=== PATIENT | female | born 1950 | race Caucasian/White ===

== ENCOUNTER → 2016-12-03 | Outpatient (CLI) | payer MEDICARE ==
--- NOTE | 2016-12-04 08:07 | MM ---
Reason for exam: follow-up at short interval from prior study. Last mammogram was performed 10 months ago. History: Patient is postmenopausal. Benign MG stereo VAD BX LT of the left breast, February 07, 2016. Took estrogen for 3 months. Took progesterone for 3 months. Physical Findings: Nurse did not find any significant physical abnormalities on exam. MG 3D Diag Mammo W/Cad LT CC and MLO view(s) were taken of the left breast. Prior study comparison: January 24, 2016, left breast MG 3d work up w/cad LT. January 03, 2016, bilateral MG screening mammo w CAD. June 30, 2014, bilateral MG screening mammo w CAD. There are scattered fibroglandular densities. Previous mammotome biopsy in the left breast. There is chronic nodularity in the left breast. No significant new findings when compared with previous films. These results were verbally communicated with the patient and result sheet given to the patient on 12/03/16. ASSESSMENT: Benign, BI-RAD 2 RECOMMENDATION: Return to routine screening mammogram schedule for both breasts. Back on schedule for January 2017 (as the patient is late for her 6 month follow up) MAGDALENA
== END | disposition home or self-care (01) ==
LOC: RADMAMWWP 14:14
PROVIDERS: ATTEND Family Medicine
DX: N63 Unspecified lump in breast (principal)
CPT/HCPCS: G0206; G0279

== ENCOUNTER → 2018-03-07 | Outpatient (CLI) | payer MEDICARE ==
[2018-03-07 17:31] LABS: Anisocytosis Slight; HCT 38.1 % (34.0-46.0); HGB 12.2 gm/dL (11.4-16.0); Hypochromasia Moderate; MCH 26.1 pg (25.0-35.0); MCHC 31.9 g/dL (31.0-37.0); MCV 81.9 fL (80.0-100.0); Mean Platelet Volume 7.6; Microcytosis Slight; Platelet Count 489 k/uL (150-450); Poikilocytosis Slight; RBC 4.66 m/uL (3.80-5.40); RDW 18.3 % (11.5-15.5); WBC 10.1 k/uL (3.8-10.6)
[2018-03-07 17:42] LABS: Potassium 4.2 mmol/L (3.5-5.1)
== END | disposition home or self-care (01) ==
LOC: LABPAT 17:06
PROVIDERS: ATTEND Internal Medicine Interventional Cardiology
DX: Z01.812 Encounter for preprocedural laboratory examination (principal); I48.0 Paroxysmal atrial fibrillation
CPT/HCPCS: 80051; 82565; 84520; 85027

== ENCOUNTER 2018-03-11 08:34 | Day surgery (SDC) | payer MEDICARE ==
[~2018-03-11 08:34] MED LIST: SODIUM CHLORIDE 0.9% 1,000 ML IV SCH
[2018-03-11 09:10] VITALS: TEMP 98.1
[2018-03-11 09:25] LABS: INR 1.7 (<1.2); Prothrombin Time 15.2 sec (9.0-12.0)
[2018-03-11] MEDS ORDERED: PROPOFOL 10 MG/ML 20 ML VIAL IV ONE (10:16)
[2018-03-11] MEDS ORDERED: LIDOCAINE 1% INJ 10MG/ML (20 ML MDV) ONE (10:16)
[2018-03-11] MEDS ORDERED: WARFARIN 3 MG TAB PO STA (10:31)
--- NOTE | 2018-03-11 10:43 | CE ---
CARDIAC ELECTROPHYSIOLOGY REPORT DATE OF SERVICE: 03/11/2018 PROCEDURE: Electrical cardioversion. INDICATION: Persistent atrial fibrillation. CLINICAL INFORMATION: Mrs. Dawn Lopez is a 67-year-old lady with a history of paroxysmal A. fib, peripheral arterial disease, previous arterial embolism who has been adequately anticoagulated. She has been having atrial fib for the past 2 weeks, was initially reluctant, but finally agreed to have electrical cardioversion and was brought in for the procedure today. Risks, benefits, options and rationale were explained to the patient. PROCEDURE: Under the influence of ultra short-acting intravenous anesthetic agent with the attendance of the anesthesiologist, a single 200 joule synchronized shock was delivered with anterior and posterior patches. Patient converted to sinus rhythm, remained hemodynamically stable and neurologically intact. This was a successful electrical cardioversion. I am recommending that she will take 3 mg of Coumadin today, 1.5 mg every day except Saturday and , which will again be 3 mg and PT, INR will be checked next Saturday along with an office visit. I am asking her to cut down the Lopressor to 50 mg t.i.d. and I will see her in one week at the office. This was a successful electrical cardioversion. MMODL / IJN: [id number] /
[2018-03-11 11:03] VITALS: RESP 18
[2018-03-11 13:10] VITALS: BP 106/64
[2018-03-11 14:32] VITALS: PULSE 77
== END 2018-03-11 15:03 | disposition home or self-care (01) ==
LOC: CATHCVL 08:34
PROVIDERS: ATTEND Internal Medicine Interventional Cardiology
DX: I48.1 Persistent atrial fibrillation (principal); I73.9 Peripheral vascular disease, unspecified; I10 Essential (primary) hypertension; E78.5 Hyperlipidemia, unspecified; J44.9 Chronic obstructive pulmonary disease, unspecified; I25.10 Atherosclerotic heart disease of native coronary artery without angina pectoris; K21.9 Gastro-esophageal reflux disease without esophagitis; E66.9 Obesity, unspecified; Z68.38 Body mass index [BMI] 38.0-38.9, adult; Z98.62 Peripheral vascular angioplasty status; Z86.718 Personal history of other venous thrombosis and embolism; Z79.01 Long term (current) use of anticoagulants; Z79.02 Long term (current) use of antithrombotics/antiplatelets; Z79.899 Other long term (current) drug therapy; Z91.041 Radiographic dye allergy status; Z98.51 Tubal ligation status; Z87.891 Personal history of nicotine dependence
CPT/HCPCS: 92960; 85610; J2001; J2704

== ENCOUNTER → 2018-03-25 | Outpatient (CLI) | payer MEDICARE ==
[2018-03-25 16:23] LABS: Phosphorus 3.5 mg/dL (2.5-4.5)
[2018-03-25 16:39] LABS: T4, Free (Free Thyroxine) 1.39 ng/dL (0.78-2.19)
== END | disposition home or self-care (01) ==
LOC: LAB 15:31
PROVIDERS: ATTEND Internal Medicine Interventional Cardiology
DX: E03.2 Hypothyroidism due to medicaments and other exogenous substances (principal)
CPT/HCPCS: 36415; 84075; 84100; 84439; 84443; 84450; 84460

== ENCOUNTER → 2018-05-23 | Outpatient (CLI) | payer MEDICARE ==
[2018-05-23 15:32] LABS: Anisocytosis Slight; HGB 12.3 gm/dL (11.4-16.0); Hypochromasia Marked; MCH 25.7 pg (25.0-35.0); MCHC 30.7 g/dL (31.0-37.0); MCV 83.7 fL (80.0-100.0); Mean Platelet Volume 8.2; Platelet Count 327 k/uL (150-450); RBC 4.78 m/uL (3.80-5.40); RDW 19.4 % (11.5-15.5)
[2018-05-23 15:54] LABS: Potassium 3.9 mmol/L (3.5-5.1)
== END | disposition home or self-care (01) ==
LOC: LABWHC1 14:37
PROVIDERS: ATTEND Internal Medicine Interventional Cardiology
DX: Z01.812 Encounter for preprocedural laboratory examination (principal); I48.1 Persistent atrial fibrillation; I10 Essential (primary) hypertension
CPT/HCPCS: 36415; 80051; 82565; 84520; 85027

== ENCOUNTER → 2018-06-27 | Outpatient (CLI) | payer MEDICARE ==
[2018-06-27 17:48] LABS: Anisocytosis Slight; Basophils % (A) 1 %; Eosinophils # (A) 0.1 k/uL (0-0.7); Eosinophils % (A) 2 %; HCT 39.3 % (34.0-46.0); Hypochromasia Marked; Lymphocytes # (A) 1.1 k/uL (1.0-4.8); Lymphocytes % (A) 17 %; MCH 26.5 pg (25.0-35.0); MCHC 30.6 g/dL (31.0-37.0); MCV 86.6 fL (80.0-100.0); Mean Platelet Volume 8.4; Monocytes # (A) 0.4 k/uL (0-1.0); Monocytes % (A) 6 %; Neutrophils # (A) 4.7 k/uL (1.3-7.7); Neutrophils % (A) 72 %; Platelet Count 338 k/uL (150-450); RBC 4.53 m/uL (3.80-5.40); RDW 19.9 % (11.5-15.5); WBC 6.5 k/uL (3.8-10.6)
[2018-06-27 17:55] LABS: Potassium 3.7 mmol/L (3.5-5.1)
== END ==
LOC: LABPAT 17:26
PROVIDERS: ATTEND Internal Medicine Interventional Cardiology
DX: Z01.812 Encounter for preprocedural laboratory examination (principal)
CPT/HCPCS: 36415; 80051; 82565; 84520; 85025

== ENCOUNTER 2018-07-09 06:38 | Day surgery (SDC) | payer MEDICARE ==
[2018-07-08 11:56] VITALS: BMI 39.4
[~2018-07-09 06:38] MED LIST changes: +ALPRAZolam 0.25 MG TAB PO PRN; +ALPRAZolam 0.5 MG TAB PO PRN; +ASPIRIN 325 MG TAB PO STA; +ATORVASTATIN 80 MG TAB PO STA; +NITROGLYCERIN SL TABS 0.4 MG TAB SUBLINGUAL PRN; -SODIUM CHLORIDE 0.9% 1,000 ML IV SCH; +SODIUM CHLORIDE 0.9% 1,000 ML in EMPTY BAG 1 BAG IV ONE
[2018-07-09 07:22] VITALS: TEMP 98.3
[2018-07-09 07:32] LABS: INR 1.5 (<1.2); Prothrombin Time 14.2 sec (9.0-12.0)
[2018-07-09] MEDS ORDERED: diphenhydrAMINE 50 MG/ML 1 ML VIAL IVP ONE (07:49)
[2018-07-09] MEDS ORDERED: MIDAZOLAM 2 MG/2 ML VIAL IV ONE ×2 (07:49)
[2018-07-09] MEDS ORDERED: LIDOCAINE 1% INJ 10MG/ML (20 ML MDV) SQ ONE (07:51)
[2018-07-09] MEDS: VERAPAMIL SYRINGE (5 MG/10 ML) INTRAARTER ONE ×2 (07:52→08:18)
[2018-07-09] MEDS ORDERED: HEPARIN SODIUM 1,000 UN/ML (10ML VL) IV ONE (08:00)
[2018-07-09] MEDS ORDERED: MORPHINE SULFATE 4 MG/ML SYRINGE IV ONE ×2 (08:13)
[2018-07-09] MEDS ORDERED: IOPAMIDOL-370 100ML BTL INJ ONE (08:21)
[2018-07-09] MEDS ORDERED: SODIUM CHLORIDE 0.9% 1,000 ML IV SCH (08:45)
[2018-07-09 09:43] LABS: T4, Free (Free Thyroxine) 1.72 ng/dL (0.78-2.19)
--- NOTE | 2018-07-09 09:55 | P.CRDCN ---
History of Present Illness Consult reason: atrial fibrillation (With RVR, refractory to amiodarone) History of present illness: This is Dr. Rocha dictating a consult on this patient The patient was interviewed and examined by me IMPRESSION / ASSESSMENT: Drug refractory persistent atrial fibrillation with RVR Coronary artery disease with an occluded RCA with leftward collaterals, moderate coronary artery disease in the other vessels, no Darrius stenting performed today History of thromboembolism to the lower extremities in the past Failed electrical cardioversion in the past PLAN: Avoid class on antiarrhythmic drug therapy at this time. Proceed with pulmonary vein isolation cryoablation Restart amiodarone 400 mg by mouth daily. Next month 200 mg by mouth daily and thereafter 100 mg by mouth daily Restart warfarin I discussed the role of pulmonary vein isolation in atrial fibrillation success rates risks benefits and complications including cardiac puncture stroke esophageal injury need for esophageal deflection phrenic nerve injury risk and for further monitoring She also understands that I would like INRs to be therapeutic for 4-6 weeks prior to the procedure Coumadin must not be held prior to the procedure HPI 67-year-old female patient of Dr. CHYNA Camacho and Dr. Staci Tiwari who has atrial fibrillation with RVR, symptomatic with shortness of breath on exertion tiredness and fatigue. She has failed electrical cardioversion on amiodarone in the past. I suggested the use of flecainide since her LV function was normal but with the caveat that a coronary arteries need to be evaluated prior to initiation of class I antiarrhythmic drug therapy. Today she underwent coronary angiography by Dr. CHYNA Camacho and showed a chronically occluded RCA with collaterals. She also has moderate coronary artery disease and other coronary arteries. Final coronary angiography report pending ROS: Shortness of breath and exertion tiredness and fatigue No fever chills or rigors, no cough, phlegm or expectoration, no nausea, vomiting or diarrhea, no hematuria, dysuria, no musculoskeletal complaints, no strokes or seizures, no skin lesions. EXAMINATION Mima tachycardic even at rest to 110 beats a minute irregular Breath sounds are clear no rhonchi no crackles No murmurs or gallops no rub but tachycardic on auscultation Abdomen soft nontender Extremities warm no edema No JVD Increased BMI of 39.5 REVIEW OF LABS, ECG INR 1.5, Coumadin on hold for coronary angiography ALT 21 AST 16 alkaline phosphatase 122 free T4 Past Medical History Past Medical History: Atrial Fibrillation, Coronary Artery Disease (CAD), COPD, Deep Vein Thrombosis (DVT), Fibromyalgia, GERD/Reflux, Hyperlipidemia, Hypertension, Vascular Disorder Additional Past Medical History / Comment(s): hx clot rt femoral artery, Peripheral vascular disease with history of claudication, hx dry mouth, PAD, had a bloody nose that lasted for "several hours" yesterday-didn't call or be seen for History of Any Multi-Drug Resistant Organisms: None Reported Past Surgical History: Orthopedic Surgery, Tubal Ligation Additional Past Surgical History / Comment(s): clot removed right femoral artery , ANGIOPLASTY TO LEFT LEG, Left shoulder repair with pin, cardioversion Past Anesthesia/Blood Transfusion Reactions: No Reported Reaction Smoking Status: Former smoker - Past Family History Mother Family Medical History: Cancer Father Family Medical History: Cancer Medications and Allergies Home Medications Medication Instructions Recorded Confirmed Type Albuterol Inhaler [Ventolin Hfa 2 puff INHALATION RT-Q6H PRN 10/01/16 07/09/18 History Inhaler] Baclofen [Lioresal] 10 mg PO QID 10/01/16 07/09/18 History Clopidogrel [Plavix] 75 mg PO W/SUPPER 10/01/16 07/09/18 History Cyanocobalamin (Vitamin B-12) 5,000 mcg PO DAILY 10/01/16 07/09/18 History [Vitamin B12] DULoxetine HCL [Cymbalta] 60 mg PO HS 10/01/16 07/09/18 History Omeprazole 20 mg PO DAILY 10/01/16 07/09/18 History oxyCODONE-APAP 5-325MG [Percocet 1 tab PO Q6HR PRN 10/01/16 07/09/18 History 5-325 mg] Cilostazol [Pletal] 100 mg PO BID 03/11/18 07/09/18 History Furosemide [Lasix] 40 mg PO BID 03/11/18 07/09/18 History Metoprolol Tartrate [Lopressor] 75 mg PO TID 03/11/18 07/09/18 History Pilocarpine [Salagen] 1 tab PO TID 03/11/18 07/09/18 History Tiotropium 18 Mcg/Puff [Spiriva] 1 inhalation PO DAILY 03/11/18 07/09/18 History Cholecalciferol [Vitamin D3] 5,000 unit PO MO 05/14/18 07/09/18 History Warfarin [Coumadin] 3 mg PO DAILY 05/14/18 07/08/18 History Magnesium Oxide [Mag-Ox] 500 mg PO BID 05/21/18 07/09/18 History rOPINIRole HCL [Requip] 5 mg PO HS 07/09/18 07/09/18 History Allergies Allergy/AdvReac Type Severity Reaction Status Date / Time Iodinated Contrast- Oral and Allergy Anaphylaxis Verified 07/08/18 11:31 IV Dye [Iodinated Contrast Media - Oral and] Physical Exam Vitals: Vital Signs Temp Pulse Resp BP BP Pulse Ox 07/09/18 09:32 112 H 18 108/53 94 L 07/09/18 08:55 112 H 18 116/54 92 L 07/09/18 08:40 114 H 18 124/63 94 L 07/09/18 07:10 98.3 F 113 H 20 111/64 92 L Intake and Output 07/08/18 07/09/18 07/09/18 22:59 06:59 14:59 Intake Total 150 Balance 150 Intake: IV 150 Results Cardiac Enzymes 07/09/18 Range/Units 08:55 AST 21 (14-36) U/L Coagulation 07/09/18 Range/Units 07:15 PT 14.2 H (9.0-12.0) sec Comprehensive Metabolic Panel 07/09/18 Range/Units 08:55 AST 21 (14-36) U/L ALT 16 (9-52) U/L Alkaline Phosphatase 122 (38-126) U/L Current Medications Generic Name Dose Route Start Last Admin Trade Name Freq PRN Reason Stop Dose Admin Alprazolam 0.25 mg 07/09/18 06:27 Xanax PO Q6HR PRN Mild Anxiety Alprazolam 0.5 mg 07/09/18 06:27 Xanax PO Q6HR PRN Moderate Anxiety Sodium Chloride 1,000 ml/ IV 1,000 mls @ 104.32 mls/hr 07/09/18 06:27 07:10 Solution IV 07/09/18 16:02 150 mls .Q9H36M ONE Administration 1 ML/KG/HR Sodium Chloride 1,000 mls @ 100 mls/hr 07/09/18 08:45 Saline 0.9% IV 07/09/18 13:44 .Q10H CONNER Nitroglycerin 0.4 mg 07/09/18 06:27 Nitrostat SUBLINGUAL Q5M PRN Chest Pain Intake and Output 07/08/18 07/09/18 07/09/18 22:59 06:59 14:59 Intake Total 150 Balance 150 Intake: IV 150
[2018-07-09 10:44] VITALS: BP 133/64; PULSE 108; RESP 16
--- NOTE | 2018-07-09 11:19 | ECHOF ---
Referral Reason:LV function MEASUREMENTS -------- HEIGHT: 162.6 cm WEIGHT: 104.3 kg BP: 116/54 RVIDd: 3.3 cm (< 3.3) IVSd: 1.0 cm (0.6 - 1.1) LVIDd: 4.1 cm (3.9 - 5.3) LVPWd: 1.0 cm (0.6 - 1.1) IVSs: 1.2 cm LVIDs: 3.5 cm LVPWs: 1.4 cm LAESV Index (A-L): 34.63 ml/m Ao Diam: 3.0 cm (2.0 - 3.7) AV Cusp: 1.7 cm (1.5 - 2.6) LA Diam: 4.3 cm (2.7 - 3.8) EPSS: 0.7 cm MV E Paul: 1.16 m/s MV DecT: 160 ms MV A Paul: 0.00 m/s MV E/A Ratio: 488.25 RAP: 10.00 mmHg RVSP: 55.69 mmHg MV EF SLOPE: 165.70 mm/s (70 - 150) MV EXCURSION: 2.17 cm (> 18.000) FINDINGS -------- Atrial fibrillation. This was a technically difficult study with suboptimal views. The left ventricular size is normal. Left ventricular wall thickness is normal. There is moderate global hypokinesis of LV . Overall left ventricular systolic function is mild-moderately impaired with, an EF between 40 - 45 %. The right ventricle is mildly enlarged. LA is moderately dilated 34-39 ml/m2 RA appears enlarged. 3 ml of Lumason was utilized for enhancement of images. There is mild aortic valve sclerosis. There is no evidence of aortic regurgitation. There is no e vidence of aortic stenosis. The mitral valve leaflets are mildly thickened. There is trace to mild mitral regurgitation. Moderate tricuspid regurgitation present. There is mild to moderate pulmonary hypertension. The r ight ventricular systolic pressure, as measured by Doppler, is 55.69mmHg. Trace/mild (physiologic) pulmonic regurgitation. The aortic root size is normal. The IVC is dilated with normal collapse. There is no pericardial effusion. CONCLUSIONS -------- 1. Atrial fibrillation. 2. This was a technically difficult study with suboptimal views. 3. The left ventricular size is normal. 4. Left ventricular wall thickness is normal. 5. There is moderate global hypokinesis of LV . 6. Overall left ventricular systolic function is mild-moderately impaired with, an EF between 40 - 45 %. 7. The right ventricle is mildly enlarged. 8. LA is moderately dilated 34-39 ml/m2 9. RA appears enlarged. 10. 3 ml of Lumason was utilized for enhancement of images. 11. There is mild aortic valve sclerosis. 12. The mitral valve leaflets are mildly thickened. 13. There is trace to mild mitral regurgitation. 14. Moderate tricuspid regurgitation present. 15. There is mild to moderate pulmonary hypertension. 16. The right ventricular systolic pressure, as measured by Doppler, is 55.69mmHg. 17. Trace/mild (physiologic) pulmonic regurgitation. 18. The aortic root size is normal. 19. The IVC is dilated with normal collapse. 20. There is no pericardial effusion. [employer]: Huseyin Real RDCS
--- NOTE | 2018-07-09 12:06 | CC ---
CARDIAC CATHETERIZATION REPORT DATE OF SERVICE: 07/09/2018. PROCEDURE: Left heart catheterization and coronary angiography. PERFORMED BY: Dr. Isaac Camacho. Moderate conscious sedation time was 27 minutes. Patient was administered Versed, Benadryl morphine and her oxygen saturation, hemodynamics and EKG were monitored closely. CLINICAL INFORMATION: Mrs. Dawn Lopez is a 68-year-old lady with a history of persistent atrial fibrillation with a rapid rate, hypertension, hyperlipidemia, and peripheral arterial disease status post vascular surgery and also has had a history of arterial embolism. She has been adequately anticoagulated in this regard. Rate control was an issue. She was seen by Dr. Rocha who recommended switching from amiodarone to flecainide, but I did not do this in view of the concern she may have coronary artery disease. She was advised coronary angiography prior to any electrophysiological intervention. Risks, benefits, options and rationale were explained. Patient was brought in for the procedure electively. PROCEDURE NOTE: Under local anesthesia and strict aseptic precautions, a 6-Amharic introducer was placed in the right radial artery. Using Ultimate 1 catheter I performed selective coronary angiography of the left system. I used a pigtail catheter to check LV pressures but LV gram was not performed. I used a standard right Mae catheter to perform selective coronary angiography of the right coronary artery. The sheath was taken out and TR band applied and oxygen saturation in the fingers of the right hand was very good at 91%. CARDIAC CATHETERIZATION FINDINGS: The left ventricular end-diastolic pressure was about 22 mmHg and there was no gradient across the aortic valve. CORONARY ANGIOGRAPHY FINDINGS: RIGHT CORONARY ARTERY: This vessel is totally occluded, seen as a stump without any antegrade flow. There is a fairly decent network of collaterals from the left system filling the distal branches of the RCA and these are coming mostly from the LAD and also to some extent from the circumflex and the PDA branch is fully opacified and the RCA appears to be a dominant vessel that is totally occluded. LEFT MAIN CORONARY ARTERY: Short patent vessel free of significant disease that immediately bifurcates into LAD and circumflex. LEFT ANTERIOR DESCENDING CORONARY ARTERY: Good caliber vessel extends along the anterior wall. In the midportion, there is about a 40% to 50% narrowing eccentric in nature at an angle after which the caliber improves. Vessel runs all the way to the apex giving off septal and diagonal branches. The septal and diagonal branches have minor irregularities. No significant disease. The LAD therefore has a 40% to 50% smooth mid lesion. LEFT POSTERIOR CIRCUMFLEX CORONARY ARTERY: Technically nondominant vessel gives off a large obtuse marginal and this then distally continues as a posterolateral branch. There are minor irregularities. No significant disease is noted. COLLATERAL CIRCULATION: There is a rich network of collaterals opacifying the distal RCA, most of the PDA branch and the collaterals are coming from both LAD and circumflex. LEFT VENTRICULOGRAM: This was not performed. FINAL IMPRESSION: This patient has total occlusion of RCA, filling pressures, 40% to 50% mid LAD lesion and nondominant circumflex is free of significant disease. RCA is dominant vessel. Left ventriculogram was not performed. RECOMMENDATIONS: I am recommending continued medical therapy with risk factor modification. No intervention is necessary at this time from a coronary artery disease standpoint. However, we will start her on amiodarone 200 mg b.i.d. and she will also be seen by Dr. Rocha today and an echocardiogram will be also performed. I am initiating her on amiodarone 200 mg b.i.d. She will follow with her PCP, Dr. Patricio Tiwari. MMODL / IJN: [id number] /
== END 2018-07-09 13:25 | disposition home or self-care (01) ==
LOC: CATHCVL 06:38
PROVIDERS: ATTEND Internal Medicine Interventional Cardiology
DX: I08.3 Combined rheumatic disorders of mitral, aortic and tricuspid valves (principal); I25.10 Atherosclerotic heart disease of native coronary artery without angina pectoris; I11.9 Hypertensive heart disease without heart failure; I25.82 Chronic total occlusion of coronary artery; I10 Essential (primary) hypertension; E78.5 Hyperlipidemia, unspecified; Z87.891 Personal history of nicotine dependence; I27.20 Pulmonary hypertension, unspecified; I48.1 Persistent atrial fibrillation; I73.9 Peripheral vascular disease, unspecified; Z79.01 Long term (current) use of anticoagulants; Z79.02 Long term (current) use of antithrombotics/antiplatelets; Z79.899 Other long term (current) drug therapy
CPT/HCPCS: 93458; 84439; 84075; 84443; 84450; 84460; 85610; C8929; C1769 ×2; C1894; J2250; J2270; J1200; J2001; J1644; Q9950; Q9967; 93306

== ENCOUNTER 2018-08-04 18:51 | Inpatient (IN) | payer MEDICARE ==
--- NOTE | 2018-08-04 19:15 | ED ---
General Adult HPI <Anson eVnces - Last Filed: 08/04/18 23:40> - General Source: patient, RN notes reviewed Mode of arrival: wheelchair Limitations: no limitations <Luciano Ureña - Last Filed: 08/05/18 01:57> - General Chief complaint: Extremity Problem,Nontraumatic Stated complaint: afib Time Seen by Provider: 08/04/18 19:13 - History of Present Illness Initial comments: 68-year-old female with history of atrial fibrillation, CAD, DVT, hyperlipidemia , COPD presents to the emergency department for a chief complaint of right lower extremity pain 4 days. Patient states this pain has been intermittent for over a year now and has been diagnosed with peripheral artery disease. Patient states she has also had a DVT in the right lower extremity about one year ago and believes there may be some chronic residual DVT. Patient states she was offered surgery by Dr. Acevedo for peripheral artery disease of the right lower extremity but had refused when offered about one year ago. Patient states it is a sharp shooting pain in the right lower extremity. Patient admits to falling about 3 days ago but states she does not believe the pain is related to the fall as she has had this same pain previously for about 1 year on and off. Patient does admit to falling on her ribs during the fall but denies any shortness of breath or chest pain. Patient denies hitting her head. Patient states it is painful to walk on the leg as it has been for the past year. Patient has no other complaints at this time including shortness of breath, chest pain, abdominal pain, nausea or vomiting, headache, or visual changes. (Luciano Ureña) - Related Data Home Medications Medication Instructions Recorded Confirmed Albuterol Inhaler [Ventolin Hfa 2 puff INHALATION RT-Q6H PRN 10/01/16 08/04/18 Inhaler] Clopidogrel [Plavix] 75 mg PO W/SUPPER 10/01/16 08/04/18 Omeprazole 20 mg PO DAILY 10/01/16 08/04/18 Cilostazol [Pletal] 100 mg PO BID 03/11/18 08/04/18 Furosemide [Lasix] 40 mg PO BID 03/11/18 08/04/18 Tiotropium 18 Mcg/Puff [Spiriva] 1 inhalation PO DAILY 03/11/18 08/04/18 Warfarin [Coumadin] 4.5 mg PO DAILY 05/14/18 08/04/18 rOPINIRole HCL [Requip] 5 mg PO HS 07/09/18 08/04/18 Acetaminophen [Tylenol 8 Hour] 650 mg PO Q8H PRN 08/04/18 08/04/18 Amiodarone HCl [Pacerone] 200 mg PO BID 08/04/18 08/04/18 Allergies Allergy/AdvReac Type Severity Reaction Status Date / Time Iodinated Contrast- Oral and Allergy Anaphylaxis Verified 08/04/18 19:46 IV Dye [Iodinated Contrast Media - Oral and] Review of Systems ROS Other: All systems not noted in ROS Statement are negative. <Anson Vences - Last Filed: 08/04/18 23:40> ROS Other: All systems not noted in ROS Statement are negative. <Luciano Ureña - Last Filed: 08/05/18 01:57> ROS Statement: Those systems with pertinent positive or pertinent negative responses have been documented in the HPI. Past Medical History Past Medical History: Atrial Fibrillation, Coronary Artery Disease (CAD), COPD, Deep Vein Thrombosis (DVT), Fibromyalgia, GERD/Reflux, Hyperlipidemia, Hypertension, Vascular Disorder Additional Past Medical History / Comment(s): hx clot rt femoral artery, Peripheral vascular disease with history of claudication, hx dry mouth, PAD, had a bloody nose that lasted for "several hours" yesterday-didn't call or be seen for History of Any Multi-Drug Resistant Organisms: None Reported Past Surgical History: Orthopedic Surgery, Tubal Ligation Additional Past Surgical History / Comment(s): clot removed right femoral artery , ANGIOPLASTY TO LEFT LEG, Left shoulder repair with pin, cardioversion Past Anesthesia/Blood Transfusion Reactions: No Reported Reaction Past Psychological History: No Psychological Hx Reported Smoking Status: Former smoker Past Alcohol Use History: None Reported Past Drug Use History: None Reported - Past Family History Mother Family Medical History: Cancer Father Family Medical History: Cancer <Luciano Ureña P - Last Filed: 08/05/18 01:57> General Exam Limitations: no limitations General appearance: alert, in no apparent distress Head exam: Present: atraumatic, normocephalic, normal inspection Eye exam: Present: normal appearance, PERRL, EOMI. Absent: scleral icterus, conjunctival injection, periorbital swelling ENT exam: Present: normal exam, mucous membranes moist Neck exam: Present: normal inspection, full ROM. Absent: tenderness, meningismus, lymphadenopathy Respiratory exam: Present: normal lung sounds bilaterally, other (Patient does have right lower rib tenderness around rib 9 on the lateral side, no ecchymosis or step-off.). Absent: respiratory distress, wheezes, rales, rhonchi, stridor Cardiovascular Exam: Present: regular rate, normal rhythm, normal heart sounds. Absent: systolic murmur, diastolic murmur, rubs, gallop, clicks GI/Abdominal exam: Present: soft, normal bowel sounds. Absent: distended, tenderness, guarding, rebound, rigid Extremities exam: Present: full ROM (Patient has full range of motion of right lower extremity.), tenderness (Patient has tenderness throughout the right lower extremity), normal capillary refill (Capillary refill less than 2 seconds in bilateral lower extremities. DP pulse on Doppler in left lower extremity. No DP or PT pulse on Doppler and right lower extremity.) Neurological exam: Present: alert, oriented X3, CN II-XII intact Psychiatric exam: Present: normal affect, normal mood <Luciano Ureña - Last Filed: 08/05/18 01:57> Course <Anson Vences - Last Filed: 08/04/18 23:40> <Luciano Ureña P - Last Filed: 08/05/18 01:57> Vital Signs 08/04/18 08/04/18 08/04/18 18:54 22:14 23:12 Temperature 97.5 F L 97.6 F Pulse Rate 110 H 109 H 107 H Respiratory 20 20 20 Rate Blood Pressure 104/59 106/67 111/68 O2 Sat by Pulse 96 96 94 L Oximetry 08/04/18 08/04/18 08/04/18 23:44 23:48 23:54 Temperature Pulse Rate 101 H 106 H 100 Respiratory 18 Rate Blood Pressure 124/77 O2 Sat by Pulse 100 Oximetry 08/05/18 08/05/18 00:15 00:29 Temperature Pulse Rate 111 H 107 H Respiratory 16 17 Rate Blood Pressure 126/83 101/85 O2 Sat by Pulse 87 L 94 L Oximetry - Reevaluation(s) Reevaluation #1: 08/04/18 23:40 PA supervision I personally do a [id number] evaluation the patient. I did examine her she does demonstrate diminished breath sounds she denies any history of recent GI bleeding or blood loss. She does complain of chronic 2-3 years of lower extremity pain with peripheral vascular disease she states she's had some increased pain in the right foot and lower extremity over last 3 days. Examination revealed diminished breath sounds examination lower extremities revealed equal temperatures bilaterally capillary refill less than 2 seconds bilaterally. I did discuss case with Dr. Rosado and Dr. Acevedo due to the patient's difficulty breathing to replace grass also she will get a unit of blood for transfusion as some of the symptoms are likely secondary to low oxygen carrying capacity due to the anemia (Anson Vences) EKG Findings - EKG Comments: EKG Findings:: Accelerated junctional rhythm, ventricular rate 109, QRS duration 92, QTC 377. EKG at 0002: Atrial flutter, ventricular rate 101, QRS duration 94, QTC 482 <Luciano Ureña - Last Filed: 08/05/18 01:57> Medical Decision Making - Lab Data Result diagrams: 08/04/18 19:45 08/04/18 19:45 <Anson Vences - Last Filed: 08/04/18 23:40> - Lab Data Result diagrams: 08/04/18 19:45 08/04/18 19:45 <Luciano Ureña - Last Filed: 08/05/18 01:57> - Medical Decision Making 68-year-old female presents to the emergency department for a chief complaint of right leg pain 4 days. However apparently this has been ongoing for years and is intermittent in nature. Patient states she has significant PAD and has been recommended for surgery by Dr. Acevedo but she refused at that time. On exam patient has tenderness throughout the right lower extremities but is able to move the right lower extremity. DP and PT pulses were not able to be located on Doppler, however patient does have capillary refill less than 2 seconds in lower extremities bilaterally which is equal. Warmth is equal bilaterally as well. Dr. Acevedo was consulted for this. Patient is tachycardic at 110 on presentation to the ER and does have a history of A. fib. CBC revealed a hemoglobin of 7.3 which did decrease from 12 about 1.5 months ago. Patient denies any hematochezia, melena, or hematemesis. Stool react was negative. INR 2.9. Potassium was 2.7 and magnesium 1.9 which is replaced. Creatinine 1.43 patient was given fluids. Right femur and tib-fib were negative for fracture. Patient does have right rib fractures. Patient also has pulmonary interstitial fibrosis. Patient initially denied any shortness of breath or chest pain. However after some time in the emergency department she did begin complaining of weakness and shortness of breath. Transfusion was then initiated at that point as patient became symptomatic after presentation. Patient's acute onset of shortness of breath and weakness is likely related to anemia as well as rib fractures and COPD. She will be admitted under Dr. aguirre. Dr. Vences also saw the patient multiple times throughout the ER stay. (Luciano Ureña) - Lab Data Lab Results 08/04/18 08/04/18 08/04/18 Range/Units 19:45 19:45 19:45 WBC 5.5 (3.8-10.6) k/uL RBC 3.08 L (3.80-5.40) m/uL Hgb 7.3 L D (11.4-16.0) gm/dL Hct 24.2 L (34.0-46.0) % MCV 78.5 L D (80.0-100.0) fL MCH 23.6 L (25.0-35.0) pg MCHC 30.0 L (31.0-37.0) g/dL RDW 19.1 H (11.5-15.5) % Plt Count 461 H (150-450) k/uL Neutrophils % (Manual) 72 % Lymphocytes % (Manual) 23 % Monocytes % (Manual) 5 % Neutrophils # (Manual) 3.96 (1.3-7.7) k/uL Lymphocytes # (Manual) 1.27 (1.0-4.8) k/uL Monocytes # (Manual) 0.28 (0-1.0) k/uL Nucleated RBCs 0 (0-0) /100 WBC Manual Slide Review Performed Polychromasia Present Hypochromasia Marked Hypochromasia (manual) Present Poikilocytosis Marked Anisocytosis Slight Anisocytosis (manual) Present Microcytosis Slight Ovalocytes Present Stomatocytes Present PT 26.2 H (9.0-12.0) sec INR 2.9 H (<1.2) APTT 28.3 (22.0-30.0) sec Sodium 137 (137-145) mmol/L Potassium 2.7 L* (3.5-5.1) mmol/L Chloride 99 (98-107) mmol/L Carbon Dioxide 22 (22-30) mmol/L Anion Gap 16 mmol/L BUN 27 H (7-17) mg/dL Creatinine 1.43 H (0.52-1.04) mg/dL Est GFR (CKD-EPI)AfAm 43 (>60 ml/min/1.73 sqM) Est GFR (CKD-EPI)NonAf 37 (>60 ml/min/1.73 sqM) Glucose 104 H (74-99) mg/dL Calcium 9.1 (8.4-10.2) mg/dL Magnesium (1.6-2.3) mg/dL Total Bilirubin 1.5 H (0.2-1.3) mg/dL AST 265 H (14-36) U/L ALT 54 H (9-52) U/L Alkaline Phosphatase 141 H (38-126) U/L Total Protein 6.7 (6.3-8.2) g/dL Albumin 3.6 (3.5-5.0) g/dL Stool Occult Blood (Negative) Blood Type Blood Type Recheck Crossmatch 08/04/18 08/04/18 08/04/18 Range/Units 19:45 19:45 21:23 WBC (3.8-10.6) k/uL RBC (3.80-5.40) m/uL Hgb (11.4-16.0) gm/dL Hct (34.0-46.0) % MCV (80.0-100.0) fL MCH (25.0-35.0) pg MCHC (31.0-37.0) g/dL RDW (11.5-15.5) % Plt Count (150-450) k/uL Neutrophils % (Manual) % Lymphocytes % (Manual) % Monocytes % (Manual) % Neutrophils # (Manual) (1.3-7.7) k/uL Lymphocytes # (Manual) (1.0-4.8) k/uL Monocytes # (Manual) (0-1.0) k/uL Nucleated RBCs (0-0) /100 WBC Manual Slide Review Polychromasia Hypochromasia Hypochromasia (manual) Poikilocytosis Anisocytosis Anisocytosis (manual) Microcytosis Ovalocytes Stomatocytes PT (9.0-12.0) sec INR (<1.2) APTT (22.0-30.0) sec Sodium (137-145) mmol/L Potassium (3.5-5.1) mmol/L Chloride (98-107) mmol/L Carbon Dioxide (22-30) mmol/L Anion Gap mmol/L BUN (7-17) mg/dL Creatinine (0.52-1.04) mg/dL Est GFR (CKD-EPI)AfAm (>60 ml/min/1.73 sqM) Est GFR (CKD-EPI)NonAf (>60 ml/min/1.73 sqM) Glucose (74-99) mg/dL Calcium (8.4-10.2) mg/dL Magnesium 1.9 (1.6-2.3) mg/dL Total Bilirubin (0.2-1.3) mg/dL AST (14-36) U/L ALT (9-52) U/L Alkaline Phosphatase (38-126) U/L Total Protein (6.3-8.2) g/dL Albumin (3.5-5.0) g/dL Stool Occult Blood Negative (Negative) Blood Type O Positive Blood Type Recheck ABR ONLY Crossmatch See Detail Disposition <Anson Vences - Last Filed: 08/04/18 23:40> Time of Disposition: 01:57 <Luciano Ureña - Last Filed: 08/05/18 01:57> Clinical Impression: Anemia, Claudication of right lower extremity Disposition: ADMITTED IP TO THIS [facility] Condition: Good
[2018-08-04] MEDS ORDERED: SODIUM CHLORIDE 0.9% 1,000 ML IV STA (19:32)
[2018-08-04] MEDS ORDERED: MORPHINE SULFATE 4 MG/ML SYRINGE IVP STA (19:37)
[2018-08-04 20:12] LABS: Albumin 3.6 g/dL (3.5-5.0); Calcium 9.1 mg/dL (8.4-10.2); Total Bilirubin 1.5 mg/dL (0.2-1.3); Total Protein 6.7 g/dL (6.3-8.2)
[2018-08-04 20:15] LABS: INR 2.9 (<1.2); Partial Thromboplastin Time 28.3 sec (22.0-30.0); Prothrombin Time 26.2 sec (9.0-12.0)
[2018-08-04 20:17] LABS: Potassium 2.7 mmol/L (3.5-5.1)
[2018-08-04 20:22] LABS: Anisocytosis Slight; HCT 24.2 % (34.0-46.0); Hypochromasia Marked; MCH 23.6 pg (25.0-35.0); Mean Platelet Volume 7.5; Microcytosis Slight; Platelet Count 461 k/uL (150-450); Poikilocytosis Marked; RBC 3.08 m/uL (3.80-5.40); RDW 19.1 % (11.5-15.5); WBC 5.5 k/uL (3.8-10.6)
[2018-08-04 20:26] LABS: HGB 7.3 gm/dL (11.4-16.0); MCV 78.5 fL (80.0-100.0)
[2018-08-04 20:40] LABS: Anisocytosis (M) Present; Hypochromasia (M) Present; Lymphocytes # (M) 1.27 k/uL (1.0-4.8); Monocytes # (M) 0.28 k/uL (0-1.0); Neutrophils # (M) 3.96 k/uL (1.3-7.7); Neutrophils % (M) 72 %; Nucleated Red Blood Cells 0 /100 WBC (0-0); Ovalocytes Present; Polychromasia Present; Stomatocytes Present; Total Cells Counted 100
[2018-08-04] MEDS ORDERED: POTASSIUM CHLORIDE 20 MEQ in WATER FOR INJECTION 1 100ML.BAG IVPB STA (20:58)
[2018-08-04] MEDS ORDERED: POTASSIUM CHLORIDE ER 20 MEQ TAB.ER PO STA (20:58)
--- NOTE | 2018-08-04 21:01 | XR ---
EXAMINATION TYPE: XR ribs RT DATE OF EXAM: 08/04/2018 COMPARISON: NONE HISTORY: Pain after fall TECHNIQUE: 4 views FINDINGS: There is pleural thickening on the right lateral chest wall. I see no pneumothorax. There i s no sign of pleural effusion. There is nondisplaced fracture right posterior third rib and seventh r ib and probably eighth rib. IMPRESSION: Right rib fractures appear acute. Mild pleural thickening.
--- NOTE | 2018-08-04 21:03 | XR ---
EXAMINATION TYPE: XR chest 2V DATE OF EXAM: 08/04/2018 COMPARISON: 05/27/2014 HISTORY: Fall. Pain. TECHNIQUE: Frontal and lateral views of the chest are obtained. FINDINGS: Heart and mediastinum are within normal limits. There is coarsening of interstitial markin gs. There is no pneumothorax. Costophrenic angles are clear. IMPRESSION: Pulmonary interstitial fibrosis has progressed compared to old exam. No pneumothorax.
--- NOTE | 2018-08-04 21:03 | XR ---
EXAMINATION TYPE: XR tibia fibula RT DATE OF EXAM: 08/04/2018 COMPARISON: NONE HISTORY: Pain after fall TECHNIQUE: 4 views FINDINGS: Tibia and fibula appear intact. There is some spurring at the tibial tubercle. There is a l arge Achilles calcaneal spur. I see no fracture. IMPRESSION: No acute abnormality of the right tibia and fibula.
--- NOTE | 2018-08-04 21:05 | XR ---
EXAMINATION TYPE: XR femur RT DATE OF EXAM: 08/04/2018 COMPARISON: NONE HISTORY: Pain TECHNIQUE: 4 views FINDINGS: I see no fracture nor dislocation. Hip joint and knee joint appear intact. IMPRESSION: No acute abnormality of the right femur.
--- NOTE | 2018-08-04 21:06 | XR ---
EXAMINATION TYPE: XR Hip RT and AP Pelvis DATE OF EXAM: 08/04/2018 COMPARISON: NONE HISTORY: Pain TECHNIQUE: A single AP view of the pelvis is obtained. Two views of the right hip are obtained. FINDINGS: The pelvic ring is intact. Proximal femurs are intact. There is no evidence of a fracture. There is mild spurring on the femoral heads and acetabula. Sacroiliac joints appear normal. Impression no acute abnormality of the pelvis and right hip. Mild osteoarthritic change.
[2018-08-04] MEDS ORDERED: MORPHINE SULFATE 4 MG/ML SYRINGE IV PRN (22:42)
[2018-08-04] MEDS ORDERED: NALOXONE 0.4 MG/ML 1 ML VIAL IV PRN (22:42)
[2018-08-04] MEDS ORDERED: IPRATROPIUM-ALBUTEROL 3 ML NEB INHALATION STA (23:28)
[2018-08-04] MEDS ORDERED: MAGNESIUM SULFATE-D5W PMX 1 GM in DEXTROSE/WATER 1 100ML.BAG IVPB ONE (23:31)
[2018-08-04] MEDS: SODIUM CHLORIDE 0.9% 1,000 ML IV SCH (23:47)
--- NOTE | 2018-08-05 00:28 | XR ---
EXAMINATION TYPE: XR chest 1V portable DATE OF EXAM: 08/05/2018 COMPARISON: Yesterday HISTORY: Chest pain TECHNIQUE: Single frontal view of the chest is obtained. FINDINGS: There is no heart failure. There is coarsening of pulmonary interstitial markings. Costoph renic angles are clear. There are chest leads. IMPRESSION: Pulmonary interstitial fibrosis. No change compared to yesterday. No gross heart failure .
[2018-08-05 01:46] VITALS: BMI 34.3
[2018-08-05 02:46] LABS: Magnesium 2.3 mg/dL (1.6-2.3); Potassium 2.9 mmol/L (3.5-5.1)
[2018-08-05 03:31] LABS: Anisocytosis Slight; HCT 24.5 % (34.0-46.0); HGB 7.1 gm/dL (11.4-16.0); Hypochromasia Marked; MCH 23.4 pg (25.0-35.0); MCV 80.6 fL (80.0-100.0); Mean Platelet Volume 8.3; Microcytosis Slight; Platelet Count 423 k/uL (150-450); Poikilocytosis Marked; RBC 3.04 m/uL (3.80-5.40); RDW 19.1 % (11.5-15.5); WBC 4.4 k/uL (3.8-10.6)
[2018-08-05] MEDS: POTASSIUM CHLORIDE 10 MEQ in WATER FOR INJECTION 1 100ML.BAG IVPB SCH ×6 (03:43→12:28)
[2018-08-05 04:23] LABS: Band Neutrophils % 4 %; Lymphocytes # (M) 0.97 k/uL (1.0-4.8); Monocytes # (M) 0.22 k/uL (0-1.0); Neutrophils % (M) 69 %; Nucleated Red Blood Cells 0 /100 WBC (0-0); Ovalocytes Present; Total Cells Counted 100
[2018-08-05 04:24] LABS: Polychromasia Present
[2018-08-05 04:25] LABS: Large Platelets Present
[2018-08-05] MEDS: DIAZEPAM 5 MG TAB PO PRN ×2 (09:38→22:04)
[2018-08-05] MEDS ORDERED: HEPARIN SODIUM,PORCINE 5,000 UNIT/ML 1 ML VIAL IV PRN (10:42)
[2018-08-05] MEDS ORDERED: HEPARIN SODIUM,PORCINE 10,000 UNIT/ML 1 ML VIAL IV ONE (11:00)
[2018-08-05 12:03] LABS: Anisocytosis Slight; Basophils % (A) 0 %; Eosinophils % (A) 1 %; HCT 28.6 % (34.0-46.0); HGB 8.5 gm/dL (11.4-16.0); Hypochromasia Marked; Lymphocytes # (A) 1.2 k/uL (1.0-4.8); Lymphocytes % (A) 18 %; MCH 23.9 pg (25.0-35.0); MCHC 29.7 g/dL (31.0-37.0); MCV 80.7 fL (80.0-100.0); Mean Platelet Volume 8.6; Microcytosis Slight; Monocytes # (A) 0.4 k/uL (0-1.0); Monocytes % (A) 6 %; Neutrophils # (A) 5.1 k/uL (1.3-7.7); Neutrophils % (A) 73 %; Platelet Count 387 k/uL (150-450); Poikilocytosis Marked; RBC 3.55 m/uL (3.80-5.40); WBC 6.9 k/uL (3.8-10.6)
[2018-08-05 12:20] LABS: Partial Thromboplastin Time 22.3 sec (22.0-30.0)
[2018-08-05] MEDS: SODIUM CHLORIDE 0.9% 1,000 ML IV SCH ×2 (12:29→20:10)
[2018-08-05] MEDS: HEPARIN SOD,PORK IN 0.45% NACL 25,000 UNIT in 0.45% NACL 1 500ML.BAG IV SCH (12:29)
--- NOTE | 2018-08-05 13:01 | CONS ---
CONSULTATION This 68-year-old female came to the emergency room with history of pain and discomfort of both lower extremities, more on the right than the left for the last one week. The patient has a history of atrial fibrillation, on Coumadin. INR is therapeutic. The patient has a history of COPD, atrial fibrillation, coronary artery disease, peripheral vascular disease. Patient is known to us from our office. The patient had right femoral embolectomy dated 10/03/2016 by , which was in cardiac origin. The patient had aortogram done in 2015, which showed severe infrapopliteal occlusive disease involving the anterior tibial, posterior tibial, very small in caliber and peroneal is patent and only stops at the ankle. MEDICAL HISTORY: History of atrial fibrillation, COPD, obesity, hypertension, severe peripheral vascular disease. Recently, patient had history of fall and she broke her ribs. PHYSICAL EXAMINATION: On examination, patient was seen in her room. She is very discomfort and is in pain. Her neck is supple. Chest has crackles bilateral. Abdomen is soft and protuberant. Femorals are difficult to feel because of they are most likely very deep; on left side is 1+. I could not feel on the right side, but present by the Doppler. Posterior tibial is present by the Doppler. The patient's motor functions are present. PLAN: The patient is also anemic and she is getting some blood transfusion. She is high risk for any major surgical intervention. We will follow with you and she may need another angiogram to the evaluate further, but last time when she was in office dated 03/05/2018 she has a monophasic waveform of the popliteal artery and also infrapopliteal vessels are very small in caliber. The ankle-brachial index on the right side is 0.27. Prognosis is guarded. We will follow with you. The patient will be getting some pain medication. MMODL / IJN: [id number] /
[2018-08-05] MEDS: MORPHINE ORAL SOLN 10 MG/5 ML CUP PO PRN (14:50)
[2018-08-05] MEDS ORDERED: NON-FORMULARY DRUG (Acetaminophen [Tylenol 8 Hour] 650 MG) PO PRN (15:23)
[2018-08-05] MEDS ORDERED: ALBUTEROL NEBULIZED 2.5 MG/3 ML INHALATION PRN (15:23)
[2018-08-05] MEDS ORDERED: WARFARIN 3 MG TAB PO SCH (15:30)
--- NOTE | 2018-08-05 16:49 | US ---
EXAMINATION TYPE: US kidneys/renal and bladder DATE OF EXAM: 08/05/2018 COMPARISON: NONE CLINICAL HISTORY: renal failure. jomar, back pain, no hematuria EXAM MEASUREMENTS: Right Kidney: 10.6 x 4.1 x 4.3 cm Left Kidney: 10.3 x 4.7 x 4.9 cm Right Kidney: No hydronephrosis or masses seen. Left Kidney: No hydronephrosis or masses seen. Bladder: Not distended. IMPRESSION: No acute process.
[2018-08-05] MEDS: IPRATROPIUM 0.5 MG/2.5 ML NEBU INHALATION SCH ×2 (17:01→20:40)
[2018-08-05] MEDS: CLOPIDOGREL 75 MG TAB PO SCH (17:03)
[2018-08-05] MEDS: FUROSEMIDE 40 MG TAB PO SCH (17:03)
[2018-08-05] MEDS: BACLOFEN 10 MG TAB PO SCH ×3 (17:29→20:09)
[2018-08-05] MEDS: AMIODARONE 200 MG TAB PO SCH (20:09)
[2018-08-05] MEDS: CILOSTAZOL 100 MG TAB PO SCH (20:09)
[2018-08-05 20:34] LABS: Glucose,Whole Blood 149 mg/dL (75-99)
--- NOTE | 2018-08-05 22:16 | HP ---
HISTORY AND PHYSICAL DATE OF ADMISSION: 08/05/2018. DATE OF SERVICE: 08/05/2018. PRESENTING COMPLAINT: Right leg pain. HISTORY OF PRESENTING COMPLAINT: This is a pleasant 68-year-old patient who follows with Dr. Tiwari. Chronic stable medical conditions include COPD, hypertension, hyperlipidemia, coronary artery disease, fibromyalgia, CHF, EF of 40% to 45%. The patient has known significant peripheral artery disease. The patient recently took a fall and got some fracture of the right hip. The patient now presents with increasing pain in the right leg coming over a few days and increasing span in the right lower extremity. There was no fever and chills. No infection. The patient is seen earlier by Dr. Dc and patient was started on IV heparin. The patient is already on Coumadin that was therapeutic, one dose was held. No surgical intervention as per him. REVIEW OF SYSTEMS: CONSTITUTIONAL: Tired. HEENT: None. RESPIRATORY: None. CARDIOVASCULAR: None. GASTROINTESTINAL: Heartburn. GENITOURINARY: None. MUSCULOSKELETAL: Some pain in the joints. DERMATOLOGICAL: None. HEMATOLOGICAL: None. LYMPHATICS: None. PSYCHIATRY: None. NEUROLOGICAL: None. PAST MEDICAL HISTORY: Atrial fibrillation, COPD, hypertension, hyperlipidemia, peripheral artery disease, coronary artery disease, fibromyalgia, GERD, CHF with EF 40% to 45%, moderate tricuspid regurgitation. PAST SURGICAL HISTORY: Clotted right femoral artery that was removed, tubal ligation, angioplasty of the left leg, left shoulder repair with pin, cardioversion. SOCIAL HISTORY: The patient smoked for about 30 years, one pack a day, stopped in 2013. No alcohol. Lives by herself. Uses a walker. FAMILY HISTORY: Cancer. HOME MEDICATIONS: 1. Requip 5 mg at bedtime. 2. Coumadin 4.5 mg p.o. daily. 3. Spiriva inhalation 1 puff daily. 4. Omeprazole 20 mg p.o. daily. 5. Lasix 40 mg p.o. b.i.d. 6. Plavix 75 mg with supper. 7. Pletal 100 mg p.o. b.i.d. 8. Amiodarone 200 mg b.i.d. 9. Ventolin HFA 2 puffs every 6 hours p.r.n. 10.Tylenol 650 mg p.o. every 8 hours p.r.n. ALLERGIES: IV CONTRAST DYE. PHYSICAL EXAMINATION: VITAL SIGNS ON PRESENTATION: Temperature 96.4, pulse 103, respiratory 14, blood pressure 110/51, pulse ox 97% on 3 L. GENERAL APPEARANCE: Well built. BMI 34.3. Sitting up in a chair. EYES: Pupils equal. Conjunctivae normal. HEENT: External appearance of nose and ears is normal. Oral cavity normal. NECK: Normal neck. JVD not raised. Mass not palpable. Respiratory effort normal. LUNGS: Slightly decreased breath sounds. CARDIOVASCULAR: Heart sounds irregular. No edema. ABDOMEN: Soft, nontender. Liver and spleen not palpable. LYMPHATICS: No lymph nodes palpable in the neck, axillae or groin. PSYCHIATRY: Alert and oriented x3. Mood and affect slightly anxious-appearing. NEUROLOGICAL: Pupils equal. Cranial nerves grossly intact. Power and sensation grossly intact. EXTREMITIES: Decreased sensation of the right foot especially. INVESTIGATIONS: White count 4.4, hemoglobin 7.1, repeat 8.5. INR was 2. INR was 2.9. BUN 27, creatinine 1.43, AST 265, ALT 54. Chest x-ray film personally reviewed by me, shows coarse interstitial markings. EKG shows atrial flutter with a rate around 118. ASSESSMENT: 1. Acute on chronic severe peripheral artery disease with poor circulation as discussed with Dr. Dc, not for any surgical intervention. Will give about 24 hours of IV heparin. 2. Persistent atrial flutter/fibrillation, chronically on Coumadin. 3. Coumadin monitoring. INR is therapeutic. 4. Chronic obstructive pulmonary disease in an ex-smoker. 5. Essential hypertension. 6. Hyperlipidemia. 7. Coronary artery disease. 8. Coronary artery disease with a stent about a month ago. 9. Chronic fibromyalgia. 10.Chronic ischemic cardiomyopathy EF 40% to 45%. 11.Moderate tricuspid regurgitation. 12.Obesity; BMI 34.3. 13.IV heparin monitoring. PLAN: The patient's one dose of Coumadin was held, the Coumadin will be resumed tonight. The patient will get 24 hours of IV heparin. Home medications are resumed. Discussed with Dr. Dc, not for any surgical intervention. Will add baclofen for or spasms. Care was discussed in detail with the patient. Questions were answered. Follow INR. MMODL / IJN: [id number] /
[2018-08-05] MEDS ORDERED: WARFARIN 1 MG TAB PO ONE (23:00)
[2018-08-06 01:17] LABS: Appearance,Urine Clear (Clear); Bilirubin,Urine Negative (Negative); Blood,Urine Negative (Negative); Color,Urine Yellow; Glucose,Urine (UA) Negative (Negative); Ketones,Urine Negative (Negative); Leukocyte Esterase,Urine Negative (Negative); Nitrite,Urine Negative (Negative); Protein,Urine Negative (Negative); Specific Gravity,Urine 1.012 (1.001-1.035)
[2018-08-06] MEDS: MORPHINE ORAL SOLN 10 MG/5 ML CUP PO PRN (01:19)
[2018-08-06] MEDS: HEPARIN SOD,PORK IN 0.45% NACL 25,000 UNIT in 0.45% NACL 1 500ML.BAG IV SCH ×2 (03:02→17:17)
[2018-08-06 07:14] LABS: Glucose,Whole Blood 118 mg/dL (75-99)
[2018-08-06] MEDS: PANTOPRAZOLE 40 MG TABLET PO SCH (07:24)
[2018-08-06] MEDS: IPRATROPIUM 0.5 MG/2.5 ML NEBU INHALATION SCH ×4 (08:14→19:41)
[2018-08-06] MEDS: BACLOFEN 10 MG TAB PO SCH ×4 (08:47→20:42)
[2018-08-06] MEDS: AMIODARONE 200 MG TAB PO SCH ×2 (08:48→20:42)
[2018-08-06] MEDS: FUROSEMIDE 40 MG TAB PO SCH ×2 (08:48→17:16)
[2018-08-06] MEDS: CILOSTAZOL 100 MG TAB PO SCH ×2 (08:48→20:41)
[2018-08-06 10:42] LABS: INR 2.1 (<1.2); Prothrombin Time 19.3 sec (9.0-12.0)
[2018-08-06 10:45] LABS: ALT 62 U/L (9-52); AST 146 U/L (14-36); Albumin 3.1 g/dL (3.5-5.0); Alkaline Phosphatase 124 U/L (38-126); Anion Gap 12 mmol/L; Blood Urea Nitrogen 11 mg/dL (7-17); Calcium 8.4 mg/dL (8.4-10.2); Carbon Dioxide 21 mmol/L (22-30); Chloride 107 mmol/L (98-107); Glucose 159 mg/dL (74-99); Potassium 3.3 mmol/L (3.5-5.1); Sodium 140 mmol/L (137-145); Total Bilirubin 1.1 mg/dL (0.2-1.3); Total Protein 6.1 g/dL (6.3-8.2)
[2018-08-06 11:05] LABS: Anisocytosis Slight; Basophils % (A) 0 %; Eosinophils # (A) 0.1 k/uL (0-0.7); Eosinophils % (A) 2 %; HCT 26.7 % (34.0-46.0); HGB 7.8 gm/dL (11.4-16.0); Hypochromasia Marked; Lymphocytes # (A) 1.4 k/uL (1.0-4.8); Lymphocytes % (A) 28 %; MCH 23.9 pg (25.0-35.0); MCHC 29.4 g/dL (31.0-37.0); MCV 81.6 fL (80.0-100.0); Mean Platelet Volume 8.5; Microcytosis Slight; Monocytes # (A) 0.2 k/uL (0-1.0); Monocytes % (A) 5 %; Neutrophils # (A) 3.1 k/uL (1.3-7.7); Neutrophils % (A) 63 %; Platelet Count 406 k/uL (150-450); Poikilocytosis Marked; RBC 3.27 m/uL (3.80-5.40); RDW 19.1 % (11.5-15.5)
[2018-08-06 11:18] LABS: Glucose,Whole Blood 171 mg/dL (75-99)
--- NOTE | 2018-08-06 11:42 | CDI ---
Last Revision, September 2017 Documentation Clarification Form Date: 08/06/2018 11:30:38 AM From: Nola SandovalVeronicaJOSE, CCDS Admit Date: 08/05/2018 12:28:00 AM Patient Name: Dawn Lopez Visit Number: [id number] Discharge Date: ATTENTION: The Clinical Documentation Specialists (CDI) and [facility] Coding Staff appreciate your assistance in clarifying documentation. Please respond to the clarification below the line at the bottom and electronically sign. The CDI & [facility] Coding staff will review the response and follow-up if needed. Please note: Queries are made part of the Legal Health Record. If you have any questions, please contact the author of this message via ITS. Bryon Parry MD: Per the History & Physical: History of "CHF with EF 40% to 45%, moderate tricuspid regurgitation." History/Risk Factors: Atrial fibrillation, COPD, Hypertension, PAD, CAD w/stent , previous DVTs & CHF as above. Former smoker. Clinical Indicators: Presented with right leg pain, diagnosed with acute on chronic severe PAD. VS: T 97.5*, P 110^, R 20, BP 104/59, PO 96 ra - 96 2Lnc. Echocardiogram Results: Previous ECHO: EF 40-45%. Chest X Ray: Pulmonary interstitial fibrosis, no gross heart failure. Home meds: Coumadin, Lasix, Plavix, Albuterol INH Treatment: IV Heparin, Coumadin held, IV fluid on admission, IV Morphine, IV Kcl. In your professional opinion, can you please clarify the acuity and type of CHF if known? Systolic Heart Failure: o Acute o Chronic o Acute on Chronic Diastolic Heart Failure: o Acute o Chronic o Acute on Chronic Systolic & Diastolic Heart Failure: o Acute o Chronic o Acute on Chronic Heart Failure Unable to Determine Other, please specify __ see progress note from yesterday MTDD
[2018-08-06 11:51] LABS: Toxic Granulation Present
[2018-08-06 11:52] LABS: Mixed Population RBC Present; Polychromasia Present
--- NOTE | 2018-08-06 15:14 | P.CRDCN ---
History of Present Illness History of present illness: This is a pleasant 68-year-old female past medical history significant for COPD, coronary artery disease, persistent atrial fibrillation with poorly controlled ventricular rates, hypertension, dyslipidemia and PAD. She follows with Dr. Camacho in the office. We have been asked to see her in consultation for atrial fibrillation. She presented to the hospital 2 days ago with symptoms of right leg pain status post fall at home. She has known PAD and follows with Dr. Dc as an outpatient. She had an angiogram done in 2016 which showed severe infrapopliteal occlusive disease involving the anterior tibial, posterior tibial. He has deemed her high risk for surgery. She was started on IV heparin infusion for 24 hours per vascular surgery. At the time of my exam she is seen sitting up in the chair. She continues to complain of significant pain in the right leg. She denies chest pain, shortness of breath, dizziness or palpitations. EKG and telemetry tracings reveal persistent atrial fibrillation as well as atrial tachycardia with poorly controlled ventricular rate. However her beta blockers have not been started on admission. At home she takes metoprolol 75 mg 3 times a day. She recently underwent cardiac catheterization which revealed total occlusion of the RCA, 40- 50% lesion of the mid LAD and no disease noted in the circumflex artery. She did not receive any stenting at that time. She is currently maintained on maximum medical therapy and is taking amiodarone 200 mg twice a day. She is currently following closely in the Coumadin clinic at our office for plans to undergo ablation once her INR remains therapeutic for the course of 4-6 weeks. Laboratory data reviewed, WBC 5.0, hemoglobin 7.8, platelets 406, INR 2.1, sodium 140, potassium 3.3, creatinine 0.74. She has received a blood transfusion since admission secondary to hgb 7.3 on admission. Patient denies active bleeding. Hemoglobin June 27 was 12. She is currently on amiodarone 200 mg twice a day, Pletal 100 mg twice a day, Plavix 75 mg daily, Lasix 40 mg twice a day and Coumadin 4.5 mg daily. Pletal and plavix are per vascular surgery team. Chest x-ray reveals pulmonary nurse to show fibrosis with progression compared to old exam. No pneumothorax. No acute cardiopulmonary process noted. X-rays obtained of the right hip, femur, tibia and fibula negative for an acute process. RIBS x-ray indicates right nondisplaced rib fracture of the third and seventh rib possibly the eighth. At the time of my exam: CONSTITUTIONAL: Denies fever. Denies chills. EYES: Denies blurred vision. Denies vision changes. Denies eye pain. EARS, NOSE, MOUTH & THROAT: Denies headache. Denies sore throat. Denies ear pain. CARDIOVASCULAR: Denies chest pain. Denies shortness of breath. Denies orthopnea. Denies PND. Denies palpitations. RESPIRATORY: Denies cough. GASTROINTESTINAL: Denies abdominal pain. Denies diarrhea. Denies constipation. Denies nausea. Denies vomiting. MUSCULOSKELETAL: Complains of pain to the right leg. INTEGUMENTARY: Denies pruitis. Denies rash. NEUROLOGIC: Denies numbness. Denies tingling. Denies weakness. PSYCHIATRIC: Denies anxiety. Denies depression. ENDOCRINE: Denies fatigue. Denies weight change. Denies polydipsia. Denies polyurina. GENITOURINARY: Denies burning, hematuria or urgency with micturation. HEMATOLOGIC: Denies history of anemia. Denies bleeding. Blood pressure 115/78 heart rate 127 afebrile maintaining oxygen saturation GENERAL: This is a 68-year-old female in no apparent distress at the time of my examination. Obese. HEENT: Head is atraumatic, normocephalic. Pupils are equal, round. Sclerae anicteric. Conjunctivae are clear. Mucous membranes of the mouth are moist. Neck is supple. There is no jugular venous distention. No carotid bruit is heard. LUNGS: Clear to auscultation no wheezes, rales or rhonchi. No chest wall tenderness is noted on palpation or with deep breathing. Diminished bilaterally HEART: Regular rate and rhythm without murmurs, rubs or gallops. S1 and S2 heard. ABDOMEN: Soft, nontender. Bowel sounds are heard. No organomegaly noted. EXTREMITIES: No evidence of peripheral edema and no calf tenderness noted. ASSESSMENT Chronic persistent atrial fibrillation on terminal operations manager anticoagulation with poorly controlled ventricular rate Right nondisplaced rib fractures Normocytic hypochromic anemia, unknown etiology History of coronary artery disease, no stenting performed are recommended. Peripheral vascular disease Hypertension Dyslipidemia PLAN Resume metoprolol at 50 mg TID for rate control. She has history of poorly controlled ventricular rates in the past and has been instructed to continue her coumadin as ordered with regular INR checks. If she remains therapeutic for 4-6 weeks she should undergo an ablation with Dr. Rocha. Continue amiodarone. Ongoing medical management regarding her anemia and the source per primary care team. Thank you kindly for this consultation. Nurse Practitioner note has been reviewed, I agree with a documented findings and plan of care. Patient was seen and examined. Past Medical History Past Medical History: Atrial Fibrillation, Coronary Artery Disease (CAD), COPD, Deep Vein Thrombosis (DVT), Fibromyalgia, GERD/Reflux, Hyperlipidemia, Hypertension, Vascular Disorder Additional Past Medical History / Comment(s): hx clot rt femoral artery, Peripheral vascular disease with history of claudication, hx dry mouth, PAD, had a bloody nose that lasted for "several hours" yesterday-didn't call or be seen for History of Any Multi-Drug Resistant Organisms: None Reported Past Surgical History: Orthopedic Surgery, Tubal Ligation Additional Past Surgical History / Comment(s): clot removed right femoral artery , ANGIOPLASTY TO LEFT LEG, Left shoulder repair with pin, cardioversion Past Anesthesia/Blood Transfusion Reactions: No Reported Reaction Past Psychological History: No Psychological Hx Reported Smoking Status: Former smoker Past Alcohol Use History: None Reported Past Drug Use History: None Reported - Past Family History Mother Family Medical History: Cancer Father Family Medical History: Cancer Medications and Allergies Home Medications Medication Instructions Recorded Confirmed Type Albuterol Inhaler [Ventolin Hfa 2 puff INHALATION RT-Q6H PRN 10/01/16 08/04/18 History Inhaler] Clopidogrel [Plavix] 75 mg PO W/SUPPER 10/01/16 08/04/18 History Omeprazole 20 mg PO DAILY 10/01/16 08/04/18 History Cilostazol [Pletal] 100 mg PO BID 03/11/18 08/04/18 History Furosemide [Lasix] 40 mg PO BID 03/11/18 08/04/18 History Tiotropium 18 Mcg/Puff [Spiriva] 1 inhalation PO DAILY 03/11/18 08/04/18 History Warfarin [Coumadin] 4.5 mg PO DAILY 05/14/18 08/04/18 History rOPINIRole HCL [Requip] 5 mg PO HS 07/09/18 08/04/18 History Acetaminophen [Tylenol 8 Hour] 650 mg PO Q8H PRN 08/04/18 08/04/18 History Amiodarone HCl [Pacerone] 200 mg PO BID 08/04/18 08/04/18 History Allergies Allergy/AdvReac Type Severity Reaction Status Date / Time Iodinated Contrast- Oral and Allergy Anaphylaxis Verified 08/04/18 19:46 IV Dye [Iodinated Contrast Media - Oral and] Physical Exam Vitals: Vital Signs Temp Pulse Pulse Resp BP Pulse Ox 08/06/18 07:45 16 08/06/18 07:00 98.3 F 127 H 16 115/78 96 08/06/18 03:25 103 H 17 08/06/18 00:05 98.0 F 103 H 17 118/83 93 L 08/05/18 23:18 18 08/05/18 20:00 120 H 18 08/05/18 19:00 97.6 F 120 H 18 104/69 97 08/05/18 15:00 97.5 F L 121 H 20 124/80 98 Intake and Output 08/05/18 08/06/18 08/06/18 22:59 06:59 14:59 Intake Total 477.293 1791.52 Output Total 800 Balance 467.603 287.52 Intake: Intake, IV Titration 813.854 0290.52 Amount Heparin Sod,Pork in 0.45% 167.603 287.52 NaCl 25,000 unit In 0.45 % NaCl 1 500ml.bag @ 18 UNITS/KG/HR 32.65 mls/hr IV .[id number] [facility] Rx#: [id number] Sodium Chloride 0.9% 1, 300 800 000 ml @ 100 mls/hr IV . Q10H [facility] Rx#:[id number] Output: Urine 800 Other: # Voids 2 Weight 90.718 kg Results 08/06/18 09:40 08/06/18 09:40 Cardiac Enzymes 08/06/18 Range/Units 09:40 AST 146 H (14-36) U/L Coagulation 08/05/18 08/06/18 08/06/18 Range/Units 16:47 01:46 09:40 PT 19.3 H (9.0-12.0) sec APTT 159.6 H* 58.7 H (22.0-30.0) sec CBC 08/06/18 Range/Units 09:40 WBC 5.0 (3.8-10.6) k/uL RBC 3.27 L (3.80-5.40) m/uL Hgb 7.8 L (11.4-16.0) gm/dL Hct 26.7 L (34.0-46.0) % Plt Count 406 (150-450) k/uL Comprehensive Metabolic Panel 08/06/18 Range/Units 09:40 Sodium 140 (137-145) mmol/L Potassium 3.3 L (3.5-5.1) mmol/L Chloride 107 (98-107) mmol/L Carbon Dioxide 21 L (22-30) mmol/L BUN 11 (7-17) mg/dL Creatinine 0.74 (0.52-1.04) mg/dL Glucose 159 H (74-99) mg/dL Calcium 8.4 (8.4-10.2) mg/dL AST 146 H (14-36) U/L ALT 62 H (9-52) U/L Alkaline Phosphatase 124 (38-126) U/L Total Protein 6.1 L (6.3-8.2) g/dL Albumin 3.1 L (3.5-5.0) g/dL Current Medications Generic Name Dose Route Start Last Admin Trade Name Freq PRN Reason Stop Dose Admin Acetaminophen 650 mg 08/04/18 22:42 Tylenol Tab PO Q6HR PRN Mild Pain or Fever > 100.5 Albuterol Sulfate 2.5 mg 08/05/18 15:23 Ventolin Nebulized INHALATION RT-Q6H PRN Shortness Of Breath Amiodarone HCl 200 mg 08/05/18 21:00 08/06/18 08:48 Cordarone PO 200 mg BID [facility] Administration Baclofen 5 mg 08/05/18 18:00 08/06/18 13:01 Lioresal PO 5 mg QID [facility] Administration Cilostazol 100 mg 08/05/18 21:00 08/06/18 08:48 Pletal PO 100 mg BID [facility] Administration Clopidogrel Bisulfate 75 mg 08/05/18 17:30 08/05/18 17:03 Plavix PO 75 mg W/SUPPER [facility] Administration Furosemide 40 mg 08/05/18 16:00 08/06/18 08:48 Lasix PO 40 mg BID@0900,1600 [facility] Administration Heparin Sodium/Sodium Chloride 500 mls @ 32.65 mls/hr 08/05/18 11:00 05:58 25,000 unit/ Sodium Chloride IV 0 units/kg/hr .[id number] [facility] 0 mls/hr Titration Protocol 18 UNITS/KG/HR Ipratropium [address] 0.5 mg 08/05/18 16:00 08/06/18 11:30 Atrovent Nebulized INHALATION Not Given RT-QID [facility] Metoprolol Tartrate 50 mg 08/06/18 16:00 Lopressor PO TID [facility] Morphine Sulfate 12 mg 08/05/18 13:42 08/06/18 01:19 Morphine Oral Esha 2mg/Ml PO 12 mg Q6H PRN Administration Severe Pain Naloxone HCl 0.2 mg 08/04/18 22:42 Narcan IV Q2M PRN Opioid Reversal Pantoprazole Sodium 40 mg 08/06/18 07:30 08/06/18 07:24 Protonix PO 40 mg [id number] [facility] Administration Ropinirole HCl 5 mg 08/05/18 21:00 08/05/18 20:09 Requip PO 5 mg HS [facility] Administration Intake and Output 08/05/18 08/06/18 08/06/18 22:59 06:59 14:59 Intake Total 265.631 7565.52 Output Total 800 Balance 467.603 287.52 Intake: Intake, IV Titration 706.148 1289.52 Amount Heparin Sod,Pork in 0.45% 167.603 287.52 NaCl 25,000 unit In 0.45 % NaCl 1 500ml.bag @ 18 UNITS/KG/HR 32.65 mls/hr IV .[id number] [facility] Rx#: [id number] Sodium Chloride 0.9% 1, 300 800 000 ml @ 100 mls/hr IV . Q10H [facility] Rx#:[id number] Output: Urine 800 Other: # Voids 2 Weight 90.718 kg Patient Weight 08/07/18 06:59 Weight 90.718 kg 08/06/18 09:40 08/06/18 09:40
[2018-08-06 17:06] LABS: Glucose,Whole Blood 146 mg/dL (75-99)
[2018-08-06] MEDS: METOPROLOL TARTRATE 50 MG TAB PO SCH ×2 (17:40→20:41)
[2018-08-06] MEDS: CLOPIDOGREL 75 MG TAB PO SCH (17:40)
[2018-08-06] MEDS: FUROSEMIDE 10 MG/ML 4 ML VIAL IV SCH ×2 (17:41→23:53)
--- NOTE | 2018-08-06 20:50 | PN ---
PROGRESS NOTE DATE OF SERVICE: 08/06/2018. PRESENTING COMPLAINT: Shortness of breath. INTERVAL HISTORY: This patient presented with right foot severe claudication. No surgical intervention per Dr. Dc. Patient has also got atrial flutter and fibrillation, somewhat uncontrolled. She was seen earlier by Cardiology. Beta katlyn was started. Patient is slightly short of breath. Patient did desaturate decreasing the oxygen. Does feel tired. Pain is well controlled. The patient has been back on Coumadin. IV heparin was discontinued this morning. REVIEW OF SYSTEMS: Done for constitutional, cardiovascular, GI, pulmonary; relevant findings as above. CURRENT MEDICATIONS: Reviewed. They include p.o. Cordarone and p.o. Lopressor that was started today. PHYSICAL EXAMINATION: Temperature 98, pulse 130s to 140, respiration 22, blood pressure 105/67, pulse ox down to 87% on room air, 93% on 3 L. GENERAL APPEARANCE: Sitting up on a chair. Short of breath. EYES: Pupils equal. Conjunctivae normal. HEENT: External appearance of nose and ears normal. Oral cavity normal. Nasal cannula in place. NECK: JVD possibly raised. Mass not palpable. RESPIRATORY: Effort increased. LUNGS: Decreased breath sounds. Some crackles. CARDIOVASCULAR: Heart sounds irregular. Edema is present. ABDOMEN: Soft, nontender. Liver and spleen not palpable. PSYCHIATRY: Alert and oriented x3. Mood and affect tired-appearing. INVESTIGATIONS: White count 5, hemoglobin 7.8, INR 2.1, potassium 3.3, BUN 11, creatinine 0.74. ProBNP is 1480. Chest x-ray shows very prominent interstitial markings. ASSESSMENT: 1. Acute on chronic congestive heart failure exacerbation, probably from ischemic cardiomyopathy, ejection fraction 40% to 45%, and further contribution by uncontrolled atrial fibrillation. 2. Acute on chronic severe peripheral artery disease, poor circulation, not for any surgical intervention. 3. Persistent atrial flutter/fibrillation, uncontrolled, chronically on Coumadin. 4. Coumadin monitoring. INR is therapeutic. 5. Chronic obstructive pulmonary disease in an ex-smoker. 6. Essential hypertension. 7. Hyperlipidemia. 8. Coronary artery disease with stent about a month ago. 9. Chronic fibromyalgia. 10.Moderate tricuspid regurgitation. 11.Obesity; body mass index 34.3. 12.Rule out pulmonary fibrosis. PLAN: Patient will be put on IV Lasix 60 mg for 3 doses. We will repeat a chest x-ray and BNP in the morning. We will also do a high-resolution CT scan in the morning and follow up on the results of the same. Patient's pain is better controlled. Care was discussed at length with the patient. Will follow. SHAINA / IJN: [id number] /
[2018-08-06] MEDS ORDERED: POTASSIUM CHLORIDE ER 20 MEQ TAB.ER PO STA (23:40)
[2018-08-07] MEDS: FUROSEMIDE 10 MG/ML 4 ML VIAL IV SCH (05:36)
[2018-08-07 07:28] LABS: Anisocytosis Slight; Basophils % (A) 0 %; Eosinophils % (A) 1 %; HGB 7.8 gm/dL (11.4-16.0); Hypochromasia Marked; Lymphocytes # (A) 1.3 k/uL (1.0-4.8); Lymphocytes % (A) 21 %; MCH 24.2 pg (25.0-35.0); MCHC 29.8 g/dL (31.0-37.0); MCV 81.1 fL (80.0-100.0); Mean Platelet Volume 8.2; Microcytosis Slight; Monocytes # (A) 0.3 k/uL (0-1.0); Monocytes % (A) 5 %; Neutrophils # (A) 4.6 k/uL (1.3-7.7); Neutrophils % (A) 71 %; Platelet Count 405 k/uL (150-450); Poikilocytosis Marked; RBC 3.21 m/uL (3.80-5.40); RDW 18.8 % (11.5-15.5); WBC 6.5 k/uL (3.8-10.6)
[2018-08-07 07:32] LABS: Anion Gap 10 mmol/L; Blood Urea Nitrogen 9 mg/dL (7-17); Calcium 8.5 mg/dL (8.4-10.2); Carbon Dioxide 25 mmol/L (22-30); Chloride 105 mmol/L (98-107); Glucose 107 mg/dL (74-99); Magnesium 1.7 mg/dL (1.6-2.3); Potassium 3.6 mmol/L (3.5-5.1); Sodium 140 mmol/L (137-145)
--- NOTE | 2018-08-07 08:15 | CT ---
EXAMINATION TYPE: CT chest wo con DATE OF EXAM: 08/07/2018 COMPARISON: None HISTORY: Pulmonary fibrosis CT DLP: 471.[address] of the chest was performed with lung and mediastinal window settings submitted. The la ck of contrast limits evaluation of the vascular, mediastinal and parenchymal structures including th e upper abdomen. LUNGS: There is pulmonary venous congestion with scattered groundglass infiltrates noted and small pl eural effusions. There is cardiomegaly. Findings suggest underlying congestive failure with superimpo sed upon changes of COPD. No evidence for focal consolidation or volume loss this time. No evidence f or mass or nodule. MEDIASTINUM/RALPH: Thoracic aorta is of normal caliber with limited evaluation given lack of contrast . The heart is enlarged. No evidence for mediastinal mass. No lymph nodes greater than 1cm. UPPER ABDOMEN: No significant abnormality is seen. OTHER: No significant other abnormality. IMPRESSION: 1. There is pulmonary venous congestion with scattered groundglass infiltrates noted and small pleur al effusions. There is cardiomegaly. Findings suggest underlying congestive failure with superimposed upon changes of COPD.
[2018-08-07] MEDS: IPRATROPIUM 0.5 MG/2.5 ML NEBU INHALATION SCH ×4 (08:22→21:22)
--- NOTE | 2018-08-07 08:41 | P.PN ---
Progress Note - Text Patient evaluated today. I will stop metoprolol tartrate and changed to Toprol succinate 200 mg by mouth daily for rate control atrial fibrillation. Follow Dr. Camacho in a week with a Holter monitor if her rates are not controlled I would recommend biventricular pacemaker followed by AV junction modification instead of any further ablations. The patient has both atrial fibrillation as well as atrial tachycardia on twelve-lead ECGs did discuss with nurse practitioner
[2018-08-07] MEDS: ACETAMINOPHEN TAB 325 MG TAB PO PRN ×3 (09:40→23:48)
[2018-08-07] MEDS: FUROSEMIDE 40 MG TAB PO SCH (09:41)
[2018-08-07] MEDS: CILOSTAZOL 100 MG TAB PO SCH ×2 (09:41→20:59)
[2018-08-07] MEDS: AMIODARONE 200 MG TAB PO SCH ×2 (09:41→20:59)
[2018-08-07] MEDS: METOPROLOL SUCCINATE (ER) 100 MG TAB.ER.24H PO SCH (09:41)
[2018-08-07] MEDS: PANTOPRAZOLE 40 MG TABLET PO SCH (09:41)
[2018-08-07] MEDS: BACLOFEN 10 MG TAB PO SCH ×4 (09:41→20:59)
[2018-08-07] MEDS: FUROSEMIDE 10 MG/ML 10 ML VIAL IV SCH ×2 (16:39→23:48)
--- NOTE | 2018-08-07 17:48 | PN ---
PROGRESS NOTE DATE OF SERVICE: August 07, 2018. PRESENTING COMPLAINT: Short of breath. INTERVAL HISTORY: This patient presented with right foot severe claudication, not for any further surgical intervention. Also been in atrial flutter fibrillation somewhat uncontrolled. The patient also found to be in acute CHF exacerbation. Started on IV Lasix. Breathing is a bit better. The patient is still desaturating without the oxygen. REVIEW OF SYSTEMS: Done for constitutional, cardiovascular, GI, pulmonary; relevant findings as above. The patient's spasm right leg is much improved. CURRENT MEDICATIONS: Reviewed that include p.o. Lasix. PHYSICAL EXAMINATION: VITAL SIGNS: Temperature 98.4, pulse 120, respiration 18, blood pressure 100/66, pulse ox 100 percent on 3 L. GENERAL APPEARANCE: Sitting up in a chair, short of breath. EYES: Pupils are equal. Conjunctivae normal. HEENT: External appearance of nose and ears normal. Oral cavity normal. Nasal cannula. NECK: JVD possibly raised. Mass not palpable. LUNGS: Decreased breath sounds. Basilar crackles. CARDIOVASCULAR: Heart is irregular. Edema present. ABDOMEN: Soft, nontender. Liver and spleen not palpable. PSYCHIATRY: Alert and oriented x3. Mood and affect normal. INVESTIGATIONS: White count 6.5, hemoglobin 7.8, potassium 3.6. BUN and creatinine is normal. CT scan of the chest suggestive of pulmonary edema. ASSESSMENT: 1. Acute on chronic congestive heart failure exacerbation from ischemic cardiomyopathy, EF 40-45 percent with contribution from uncontrolled atrial fibrillation, slow to respond. 2. Acute on severe peripheral artery disease, poor circulation, not for any surgical intervention. 3. Persistent atrial flutter fibrillation, uncontrolled, chronically on Coumadin. 4. Coumadin monitoring. INR is therapeutic. 5. Chronic obstructive pulmonary disease in an ex-smoker. 6. Essential hypertension. 7. Hyperlipidemia. 8. Coronary artery disease with a stent about a month ago. 9. Chronic fibromyalgia. 10.Moderate tricuspid regurgitation, nonrheumatic. 11.Obesity BMI 34.3. 12.Acute hypoxic respiratory failure from pulmonary edema, present on admission. PLAN: We will continue patient on IV Lasix presently. Follow electrolytes closely. Care was discussed with the patient. MMODL / IJN: [id number] /
[2018-08-07] MEDS: CLOPIDOGREL 75 MG TAB PO SCH (18:02)
[2018-08-07 22:10] LABS: INR 2.2 (<1.2); Prothrombin Time 19.5 sec (9.0-12.0)
[2018-08-08] MEDS: ACETAMINOPHEN TAB 325 MG TAB PO PRN ×2 (06:03→13:47)
[2018-08-08 07:36] VITALS: RESP 16
[2018-08-08 08:13] LABS: Anisocytosis Slight; Basophils % (A) 1 %; Eosinophils # (A) 0.1 k/uL (0-0.7); Eosinophils % (A) 2 %; HCT 28.1 % (34.0-46.0); HGB 8.2 gm/dL (11.4-16.0); Hypochromasia Marked; Lymphocytes # (A) 1.3 k/uL (1.0-4.8); Lymphocytes % (A) 21 %; MCHC 29.2 g/dL (31.0-37.0); MCV 82.3 fL (80.0-100.0); Mean Platelet Volume 8.2; Microcytosis Slight; Monocytes # (A) 0.3 k/uL (0-1.0); Monocytes % (A) 5 %; Neutrophils # (A) 4.2 k/uL (1.3-7.7); Neutrophils % (A) 66 %; Platelet Count 412 k/uL (150-450); Poikilocytosis Marked; Prothrombin Time 18.3 sec (9.0-12.0); RBC 3.41 m/uL (3.80-5.40); RDW 18.9 % (11.5-15.5); WBC 6.3 k/uL (3.8-10.6)
[2018-08-08 08:30] LABS: Anion Gap 10 mmol/L; Blood Urea Nitrogen 12 mg/dL (7-17); Calcium 8.8 mg/dL (8.4-10.2); Carbon Dioxide 28 mmol/L (22-30); Chloride 103 mmol/L (98-107); Glucose 99 mg/dL (74-99); Potassium 3.2 mmol/L (3.5-5.1); Sodium 141 mmol/L (137-145)
[2018-08-08] MEDS: IPRATROPIUM 0.5 MG/2.5 ML NEBU INHALATION SCH ×3 (08:58→17:27)
[2018-08-08] MEDS: FUROSEMIDE 10 MG/ML 10 ML VIAL IV SCH ×2 (09:12→18:13)
[2018-08-08] MEDS: CILOSTAZOL 100 MG TAB PO SCH (09:13)
[2018-08-08] MEDS: BACLOFEN 10 MG TAB PO SCH ×3 (09:13→18:15)
[2018-08-08] MEDS: AMIODARONE 200 MG TAB PO SCH (09:13)
[2018-08-08] MEDS: METOPROLOL SUCCINATE (ER) 100 MG TAB.ER.24H PO SCH (09:13)
[2018-08-08] MEDS: PANTOPRAZOLE 40 MG TABLET PO SCH (09:13)
--- NOTE | 2018-08-08 10:29 | CDI ---
Last Revision, September 2017 Documentation Clarification Form Date: 08/06/2018 11:30:00 AM From: Nola VeronicaJOSE, CCDS Admit Date: 08/05/2018 12:28:00 AM Patient Name: Dawn Lopez Visit Number: [id number] Discharge Date: ATTENTION: The Clinical Documentation Specialists (CDI) and [facility] Coding Staff appreciate your assistance in clarifying documentation. Please respond to the clarification below the line at the bottom and electronically sign. The CDI & [facility] Coding staff will review the response and follow-up if needed. Please note: Queries are made part of the Legal Health Record. If you have any questions, please contact the author of this message via ITS. Bryon Gabriel MD: Per the History & Physical: History of "CHF with EF 40% to 45%, moderate tricuspid regurgitation." History/Risk Factors: Atrial fibrillation, COPD, Hypertension, PAD, CAD w/stent , previous DVTs & CHF as above. Former smoker. Clinical Indicators: Presented with right leg pain, diagnosed with acute on chronic severe PAD. VS: T 97.5*, P 110^, R 20, BP 104/59, PO 96 ra - 96 2Lnc. Echocardiogram Results: Previous ECHO: EF 40-45%. Chest X Ray: Pulmonary interstitial fibrosis, no gross heart failure. Home meds: Coumadin, Lasix, Plavix, Albuterol INH Treatment: IV Heparin, Coumadin held, IV fluid on admission, IV Morphine, IV Kcl. In your professional opinion, can you please clarify the type of CHF if known? Systolic Heart Failure Diastolic Heart Failure Systolic & Diastolic Heart Failure Unable to Determine Other, please specify documentted in my notes MTDD
[2018-08-08] MEDS ORDERED: POTASSIUM CHLORIDE ER 20 MEQ TAB.ER PO STA (11:31)
[2018-08-08 14:39] VITALS: BP 98/63; PULSE 101; TEMP 97.7
[2018-08-08] MEDS: CLOPIDOGREL 75 MG TAB PO SCH (18:13)
--- NOTE | 2018-08-09 04:55 | DS ---
DISCHARGE SUMMARY DATE OF ADMISSION: August 05, 2018. DATE OF DISCHARGE: 08/08/2018. FINAL DIAGNOSES: 1. Acute on chronic congestive heart failure exacerbation from ischemic cardiomyopathy, EF 35-40 percent with contribution from uncontrolled atrial fibrillation. 2. Acute on severe peripheral artery disease, not for any surgical intervention, present on admission. 3. Persistent atrial flutter fibrillation, uncontrolled present on admission. 4. Coumadin monitoring. 5. Chronic obstructive pulmonary disease in an ex-smoker. 6. Essential hypertension. 7. Hyperlipidemia. 8. Coronary artery disease with stent about a month ago. 9. Chronic fibromyalgia. 10.Moderate tricuspid regurgitation, nonrheumatic. 11.Obesity; BMI 34.3. 12.Acute hypoxic respiratory failure from pulmonary edema present on admission. HOSPITAL COURSE: The patient presented with significant pain in the right foot. Seen by Dr. Dc. The patient has got chronic severe peripheral artery disease, not for any intervention. The patient also had atrial fibrillation, rate somewhat uncontrolled. Beta katlyn dosing was increased. The patient also was in congestive heart failure. Responded well to IV diuretics. Doing much better today. Today spoke at length with the patient about different aspects of the case. All the questions were answered. Pain overall much better. PHYSICAL EXAMINATION: Temperature 97.7, pulse 100, respirations 16, blood pressure 98/63, pulse ox 93 percent on room air. Lungs improved air entry. CARDIOVASCULAR: Heart sounds irregular. INVESTIGATIONS: White count 6.3, hemoglobin 8.2, INR 2, potassium 3.2, BUN and creatinine is normal. CONSULTATION: Dr. Rocha from Cardiology and Dr. Dc from vascular. Additionally, patient did have a CT scan of the chest that showed evidence of congestive heart failure. The patient also had a ultrasound of the kidneys that was unremarkable. Discussion and discharge planning more than 35 minutes. DISCHARGE MEDICATIONS: 1. Ventolin HFA 2 puffs q.6h p.r.n. 2. Plavix 75 mg with supper. 3. Omeprazole 20 mg daily. 4. Pletal 100 mg p.o. b.i.d. 5. Spiriva 1 puff daily. 6. Coumadin 4.5 mg p.o. daily. 7. Requip 5 mg p.o. q.h.s. 8. Amiodarone 200 mg b.i.d. 9. Toprol-XL 200 mg p.o. daily. 10.Tylenol 650 mg q.6h p.r.n. 11.Baclofen 5 mg q.i.d. p.r.n. for muscle spasm. 12.Cymbalta 60 mg p.o. daily. 13.Lasix 60 mg b.i.d. 14.Neurontin 300 mg q.h.s. FOLLOW UP: Follow up with Dr. Isaac Camacho on 08/12/2018, follow up with Dr. Patricio Tiwari on 08/11/2018. Dr. Phong Dc in 1 week. Labs, BMP, magnesium in 3-5 days. Discussion and discharge planning more than 35 minutes. MMODL / IJN: [id number] /
[2018-08-09] MEDS ORDERED: DULoxetine HCL 60 MG CAPSULE.DR PO SCH (09:00)
--- NOTE | 2018-08-12 10:07 | CDI ---
Last Revision, September 2017 Documentation Clarification Form Date: 08/12/18 From: Lotus Ferreira Phone: If you have a question regarding this query, please contact Candi Hu at [phone] between 8am and 5pm. Admit Date: 08/05/2018 12:28:00 AM Patient Name: Dawn Lopez Visit Number: [id number] Discharge Date: 08/08/18 ATTENTION: The Clinical Documentation Specialists (CDI) and [facility] Coding Staff appreciate your assistance in clarifying documentation. Please respond to the clarification below the line at the bottom and electronically sign. The CDI & [facility] Coding staff will review the response and follow-up if needed. Please note: Queries are made part of the Legal Health Record. If you have any questions, please contact the author of this message via ITS. Bryon Parry MD Atrial Flutter is documented in the H&P, discharge summary and your 08/05 - progress notes. History/Risk factors: Patient has a history of CAD, hypertension, CHF and atrial fibrillation. Clinical Indicators: Short of breath, atrial tackycardia EKG/telemetry: Documentation in the ED note and H&P states the EKG shows atrial flutter with a rate around 101 and 118. Consult note states the EKG and telemetry tracings reveal persistent atrial fibrillation as well as atrial tachycardia with poorly controlled ventricular rate. Treatment: Chronically on Coumadin In your professional opinion, in order to capture the severity of condition; can you please clarify the type of atrial flutter if known? Typical/Type I Atypical/Type II Other, please specify Unable to determine UNABLE TO DETERMINE MTDD
--- NOTE | 2018-08-12 10:20 | CDI ---
Last Revision, September 2017 Documentation Clarification Form Date: 08/12/18 From: Lotus Ferreira Phone: If you have a question regarding this query, please contact Candi Hu at [phone] between 8am and 5pm. Admit Date: 08/05/2018 12:28:00 AM Patient Name: Dawn Lopez Visit Number: [id number] Discharge Date: 08/08/18 ATTENTION: The Clinical Documentation Specialists (CDI) and [facility] Coding Staff appreciate your assistance in clarifying documentation. Please respond to the clarification below the line at the bottom and electronically sign. The CDI & [facility] Coding staff will review the response and follow-up if needed. Please note: Queries are made part of the Legal Health Record. If you have any questions, please contact the author of this message via ITS. Bryon Parry MD History/Risk Factors: Patient was admitted with acute on chronic severe PAD with poor circulation, persistent atrial flutter/fibrillation and has a history of CAD with previous stent and hypertension Clinical Indicators: Short of breath, pulmonary edema, elevated BNP VS/Pulse OX: T. 97.5, P. 110, R. 20, BP 104/59, O2 sat. 96 BNP: 08/06: 1480, 08/08: 2270 Echocardiogram Results: Previous echo: EF 40 - 45% Chest X Ray: 08/04: Pulmonary interstitial fibrosis has progressed compared to old exam. No pneumothorax. CT Chest: 08/07: There is pulmonary venous congestion with scattered groundglass infiltrates noted and small pleural effusions. There is cardiomegaly. Findings sugges underlying congestive failure with superimposed changes of COPD. Treatment: IV Lasxi 60 mg IV Q 8hr In your professional opinion, can you please clarify the type of CHF if known? Systolic Heart Failure: Diastolic Heart Failure: Systolic & Diastolic Heart Failure: Unable to Determine Other, please specify MTDD
--- NOTE | 2018-08-12 10:36 | CDI ---
Last Revision, September 2017 Documentation Clarification Form Date: 08/12/18 From: Lotus Ferreira Phone: If you have a question , please contact Candi Hu at [phone] [email or web address] &5pm. Admit Date: 08/05/2018 12:28:00 AM Patient Name: Dawn Lopez Visit Number: [id number] Discharge Date: 08/08/18 ATTENTION: The Clinical Documentation Specialists (CDI) and [facility] Coding Staff appreciate your assistance in clarifying documentation. Please respond to the clarification below the line at the bottom and electronically sign. The CDI & [facility] Coding staff will review the response and follow-up if needed. Please note: Queries are made part of the Legal Health Record. If you have any questions, please contact the author of this message via ITS. Bryon Parry MD Peripheral artery disease is documented in the ED note both consult notes H&P and discharge summary. History/Risk Factors: Patient was admitted with known significant peripheral artery disease and history of previous DVT in the right lower extremity. Patient also has CAD, hypertension and CHF. Clinical Indicators: Severe right foot claudication. Doppler/Radiology Reports: Right tibia, femur and hip x-rays showed no acute abnormality Treatment: 24 hours of IV heparin and Coumadin held. In your professional opinion, can the type and location of PVD be further specified? Can you please clarify the vessel and laterality if known? Atherosclerosis of the extremities Due to embolism Due to thrombosis Occlusive Other, please specify Unable to determine In your professional opinion, in order to capture the severity of condition, can you please clarify if the above clinical indicators and treatment signify if there were any associated conditions? Gangrene Intermittent Claudication Rest Pain Ulceration No related conditions Other, please specify Unable to determine UNABLE TO DETERMINE MTDD
--- NOTE | 2018-08-12 16:04 | DS ---
DISCHARGE SUMMARY ADDENDUM TO DISCHARGE SUMMARY: DATE OF ADMISSION: 08/05/2018 DATE OF DISCHARGE: 08/08/2018. FINAL DIAGNOSES: Correction to number 1: Acute on chronic congestive heart failure exacerbation from ischemic cardiomyopathy, systolic, ejection fraction 35% to 40%, with contribution from uncontrolled atrial fibrillation. MMCHLOÉ / LASHAEN: [id number] /
== END 2018-08-08 18:04 | disposition home or self-care (01) | DRG 291 ==
LOC: EC 18:51 → 4MS4W 08-05 00:28 → 4SSUR 08-05 05:04
PROVIDERS: ADMIT Hospitalist; ATTEND Hospitalist
PROC: 30253N1 (ICD-10-PCS; principal; 2018-08-05)
DX: I11.0 Hypertensive heart disease with heart failure (principal); J96.01 Acute respiratory failure with hypoxia; I47.1 Supraventricular tachycardia; S22.41XA Multiple fractures of ribs, right side, initial encounter for closed fracture; I48.92 Unspecified atrial flutter; I36.1 Nonrheumatic tricuspid (valve) insufficiency; J84.10 Pulmonary fibrosis, unspecified; I25.82 Chronic total occlusion of coronary artery; I48.2 Chronic atrial fibrillation; I73.9 Peripheral vascular disease, unspecified; J44.9 Chronic obstructive pulmonary disease, unspecified; D50.9 Iron deficiency anemia, unspecified; E66.9 Obesity, unspecified; I50.9 Heart failure, unspecified; E78.5 Hyperlipidemia, unspecified; I25.10 Atherosclerotic heart disease of native coronary artery without angina pectoris; I25.5 Ischemic cardiomyopathy; K21.9 Gastro-esophageal reflux disease without esophagitis; M79.7 Fibromyalgia; Z68.34 Body mass index [BMI] 34.0-34.9, adult; Z79.01 Long term (current) use of anticoagulants; Z79.02 Long term (current) use of antithrombotics/antiplatelets; Z79.899 Other long term (current) drug therapy; Z87.891 Personal history of nicotine dependence; Z95.5 Presence of coronary angioplasty implant and graft; Z91.041 Radiographic dye allergy status; Z86.718 Personal history of other venous thrombosis and embolism; Z98.51 Tubal ligation status; Z80.9 Family history of malignant neoplasm, unspecified; W19.XXXA Unspecified fall, initial encounter
CPT/HCPCS: 36415; 71045; 71046; 71250; 73502; 76770; 80048; 80053; 81003; 82272; 83735; 83880; 84132; 85025; 85610; 85730; 86850; 86900; 86901; 86920; 93005; 94640; 94760; 96361; 96365; 96366; 96367; 96375; 99284

== ENCOUNTER → 2018-10-04 | Outpatient (CLI) | payer MEDICARE ==
[2018-10-04 13:04] LABS: INR 4.6 (<1.2); Prothrombin Time 44.4 sec (9.0-12.0)
== END | disposition home or self-care (01) ==
LOC: LABWHC1 11:50
PROVIDERS: ATTEND Nurse Practitioner Adult Health
DX: I48.1 Persistent atrial fibrillation (principal)
CPT/HCPCS: 36415; 85610